=== PATIENT | male | born 1985 | race Caucasian/White ===

== ENCOUNTER 2017-02-25 20:53 | Emergency (ER) | payer SELFPAY ==
[~2017-02-25] VITALS: Ht 175.3 cm; Wt 96.5 kg
[2017-02-25 21:06] VITALS: Ht 175.3 cm; Wt 96.5 kg
[2017-02-26] MEDS ORDERED: CLON2TAB3 PO (11:18)
[2017-02-26] MEDS ORDERED: CITA-104 PO (11:18)
[2017-02-26] MEDS ORDERED: GABA400C14 PO (11:19)
[2017-02-26] MEDS ORDERED: TRAZ150T65 PO (11:19)
[2017-02-26] MEDS ORDERED: SPIR100T PO (11:19)
[2017-02-26] MEDS ORDERED: EST2 PO (11:25)
== END 2017-02-26 02:10 | disposition left against medical advice (07) ==
LOC: E/R 20:53
DX: Z53.21 Procedure and treatment not carried out due to patient leaving prior to being seen by health care provider (principal)

== ENCOUNTER 2017-02-26 10:42 | Inpatient (IN) | payer OTHER ==
[~2017-02-26] VITALS: Ht 177.8 cm; Wt 97.9 kg
[2017-02-26] MEDS ORDERED: HYDROmorphONE 1 MG/ML SYG IV STA ×3 (10:58→16:57)
[2017-02-26] MEDS ORDERED: SOD CHLORIDE 0.9% 500 ML IV STA (10:58)
[2017-02-26] MEDS ORDERED: LORAZEPAM 2 MG INJ IV STA (10:58)
[2017-02-26] MEDS ORDERED: ONDANSETRON 4 MG INJ IV STA (10:58)
[2017-02-26] MEDS ORDERED: CITA-104 PO (11:18)
[2017-02-26] MEDS ORDERED: CLON2TAB3 PO (11:18)
[2017-02-26] MEDS ORDERED: SPIR100T PO (11:19)
[2017-02-26] MEDS ORDERED: GABA400C14 PO (11:19)
[2017-02-26] MEDS ORDERED: TRAZ150T65 PO (11:19)
[2017-02-26] MEDS ORDERED: EST2 PO (11:25)
[2017-02-26 11:37] LABS: ADD SCAN DIFF NO
[2017-02-26 11:52] LABS: BASOPHILS % 0.6 % (0.0-2.0); EOSINOPHILS # 0.1 10^3/ul (0.0-0.5); EOSINOPHILS % 1.9 % (0.0-7.0); HEMATOCRIT 40.9 % (42.0-52.0); HEMOGLOBIN 13.8 g/dl (14.0-18.0); LYMPHOCYTES # 2.4 10^3/ul (0.8-2.9); LYMPHOCYTES % 33.3 % (15.0-51.0); MEAN CORPUSCULAR HEMOGLOBIN 32.2 pg (29.0-33.0); MEAN CORPUSCULAR HGB CONC 33.7 g/dl (32.0-37.0); MEAN CORPUSCULAR VOLUME 95.6 fl (82.0-101.0); MEAN PLATELET VOLUME 9.9 fl (7.4-10.4); MONOCYTE # 0.5 10^3/ul (0.3-0.9); MONOCYTES % 6.4 % (0.0-11.0); NEUTROPHIL # 4.1 10^3/ul (1.6-7.5); NEUTROPHILS % 57.2 % (39.0-77.0); PLATELET COUNT 266 10^3/UL (140-415); RED BLOOD COUNT 4.28 10^6/ul (4.70-6.10); RED CELL DISTRIBUTION WIDTH 13.7 % (11.5-14.5); WHITE BLOOD COUNT 7.2 10^3/ul (4.8-10.8)
[2017-02-26 13:01] LABS: ALANINE AMINOTRANSFERASE 165 IU/L (13-69); ALBUMIN 3.7 g/dl (3.3-4.9); ALBUMIN/GLOBULIN RATIO 1.23; ALKALINE PHOSPHATASE 87 IU/L (42-121); AMYLASE 620 U/L (11-123); ANION GAP 10 (8-16); ASPARTATE AMINO TRANSFERASE 216 IU/L (15-46); BLOOD UREA NITROGEN 12 mg/dl (7-20); CALCIUM 8.4 mg/dl (8.4-10.2); CARBON DIOXIDE 26 mmol/L (21-31); CHLORIDE 108 mmol/L (97-110); CREATININE 0.84 mg/dl (0.61-1.24); GLUCOSE 100 mg/dl (70-220); POTASSIUM 3.7 mmol/L (3.5-5.1); SODIUM 140 mmol/L (135-144); TOTAL PROTEIN 6.7 g/dl (6.1-8.1)
[2017-02-26 13:38] LABS: BARBITURATES NEGATIVE (NEGATIVE); BENZODIAZEPINES NEGATIVE (NEGATIVE); CANNABINOIDS NEGATIVE (NEGATIVE); COCAINE POSITIVE (NEGATIVE); OPIATES POSITIVE (NEGATIVE)
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
[2017-02-26] MEDS ORDERED: LORAZEPAM 2 MG INJ IV ONE (14:00)
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
[2017-02-26] MEDS ORDERED: SOD CHLORIDE 0.9% 1,000 ML IV SCH (14:53)
[2017-02-26] MEDS ORDERED: morphine 10 MG INJ IV ONE (15:00)
[2017-02-26] MEDS ORDERED: ACETAMINOPHEN 325 MG TAB PO PRN ×2 (15:00→18:00)
[2017-02-26] MEDS ORDERED: CLINDAMYCIN 900 MG INJ IV ONE (15:00)
[2017-02-26] MEDS ORDERED: ONDANSETRON 4 MG INJ IV PRN ×2 (15:00→18:00)
[2017-02-26 15:28] LABS: ACETAMINOPHEN < 10.0 ug/ml (10.0-30.0); SALICYLATE < 1.0 mg/dl (5.0-30.0)
--- NOTE | 2017-02-26 15:46 | EN ---
Date/Time of Note Date/Time of Note DATE: 02/26/17 TIME: 15:45 ER Progress Note Ultrasound-guided peripheral IV note: Indication, Ritika will obtain IV line and patient needs a high IV line for contrast CT. Area was cleaned with chlorhexidine wipe, ultrasound guidance was used to easily introduce a extended 18-gauge Angiocath into the right basilic vein. Patient tolerated the procedure with her no complications. IV had good blood return and flushed well. Images were saved in patient chart. SARA MALDONADO DO Feb 26, 2017 15:46
[2017-02-26] MEDS ORDERED: IOHEXOL 100 ML ONE (15:47)
[2017-02-26] MEDS ORDERED: SOD CHLORIDE 0.9% 100 ML ONE ×2 (15:47→20:52)
[2017-02-26] MEDS ORDERED: LIDOCAINE 1% (MPF) 5 ML VIAL SC ONE (16:30)
[2017-02-26] MEDS ORDERED: OLANZAPINE 10 MG VIAL IM ONE (17:30)
[2017-02-26] MEDS ORDERED: OLANZAPINE (ODT) 5 MG TAB ODT STA (17:36)
[2017-02-26] MEDS ORDERED: hydrALAzine 20 MG INJ IV PRN (18:00)
[2017-02-26] MEDS ORDERED: NACL 0.9% 3 ML SYG IV SCH (18:00)
[2017-02-26] MEDS ORDERED: LORAZEPAM 2 MG INJ IV PRN (18:00)
[2017-02-26] MEDS ORDERED: ALBUTEROL/IPRATROPIUM (NEB) 3 ML AMP HHN PRN (18:00)
[2017-02-26] MEDS ORDERED: NITROGLYCERIN (SL) 0.4 MG TAB SL PRN (18:00)
[2017-02-26] MEDS ORDERED: NA PHOSPHATE/BIPHOS 133 ML ENEMA PR PRN (18:00)
[2017-02-26] MEDS: SOD CHLORIDE 0.45% 1,000 ML IV SCH (18:46)
--- NOTE | 2017-02-26 18:52 | RADRPT ---
PROCEDURE: CTA Neck. CLINICAL INDICATION: Pain, vascular injury TECHNIQUE: The study was attempted, however, discussion with the vascular technologist sonographer indicates the IV infiltrated and no diagnostic images were acquired. COMPARISON: No prior studies are available for comparison. FINDINGS: Nondiagnostic exam due to IV infiltration. IMPRESSION: Nondiagnostic exam due to IV infiltration. Consider repeat imaging as warranted. RPTAT: AA .Sunny Isabel MD, MD Date Time Electronically viewed and signed by .Sunny Isabel MD, on 02/26/2017 18:51 .T/
[2017-02-26] MEDS ORDERED: CLINDAMYCIN 900 MG/D5W (PMX) 50 ML IVPB SCH (19:00)
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
[2017-02-26 20:45] VITALS: TEMP 98
--- NOTE | 2017-02-26 20:46 | RADRPT ---
PROCEDURE: XR Chest. CLINICAL INDICATION: Left PICC placement TECHNIQUE: AP Portable chest. COMPARISON: None available FINDINGS: The soft tissues and bones are remarkable for a left PICC catheter tip in the right atrium. Low rosey g volumes are present. No focal infiltrates, masses or effusions are present. The mediastinum and the heart size demonstrate magnification due to portable technique and possible mild cardiomegaly.. No focal infiltrates, masses, or effusions are noted. The mediastinum and heart are normal. No pn eumothorax is present. IMPRESSION: 1. Left PICC catheter tip in right atrium. 2. Magnification of the heart size dated portable AP technique and correlate with PA and lateral ch est x-ray to evaluate for mild cardiomegaly. 3. Low lung volumes without evidence for acute cardiopulmonary disease. RPTAT: HDC .Krystin Gao MD, Date Time Electronically viewed and signed by .Krystin Gao MD, on 02/26/2017 20:46 .C/
[2017-02-26] MEDS ORDERED: GABAPENTIN 400 MG CAP PO SCH (21:00)
[2017-02-26] MEDS: CHLORDIAZEPOXIDE 5 MG CAP PO SCH ×2 (21:20→23:00)
[2017-02-26 21:28] LABS: INR 0.97; PROTIME 12.9 Sec (12.2-14.2)
[2017-02-26 21:29] LABS: PARTIAL THROMBOPLASTIN TIME 27.5 Sec (25.0-35.0)
[2017-02-26] MEDS: LORAZEPAM 2 MG INJ IV PRN (22:59)
[2017-02-26] MEDS: HEPARIN 5,000 UNIT/0.5 ML VIAL SC SCH (23:09)
[2017-02-26] MEDS: morphine 2 MG INJ IV PRN (23:15)
[2017-02-26 23:19] VITALS: BP 117/69; RESP 20
[2017-02-27] MEDS: CLINDAMYCIN 600 MG/D5W (PMX) 50 ML IVPB SCH ×5 (00:02→23:34)
[2017-02-27 00:06] VITALS: Ht 177.8 cm; Wt 97.9 kg
[2017-02-27] MEDS: morphine 2 MG INJ IV PRN ×4 (04:51→23:35)
[2017-02-27] MEDS: PANTOPRAZOLE (EC) 40 MG TAB PO SCH (05:29)
[2017-02-27] MEDS: LORAZEPAM 2 MG INJ IV PRN ×4 (05:30→20:19)
[2017-02-27 06:56] LABS: CHOL/HDL RATIO 3.3 RATIO
[2017-02-27] MEDS: SOD CHLORIDE 0.45% 1,000 ML IV SCH ×2 (07:14→20:19)
[2017-02-27 07:21] LABS: THYROID STIMULATING HORMONE 2.68 MIU/L (0.465-4.680)
[2017-02-27 08:00] LABS: ADD SCAN DIFF NO
[2017-02-27 08:05] LABS: BASOPHILS % 0.7 % (0.0-2.0); EOSINOPHILS # 0.2 10^3/ul (0.0-0.5); HEMATOCRIT 35.7 % (42.0-52.0); HEMOGLOBIN 12.3 g/dl (14.0-18.0); LYMPHOCYTES # 1.7 10^3/ul (0.8-2.9); LYMPHOCYTES % 37.9 % (15.0-51.0); MEAN CORPUSCULAR HEMOGLOBIN 32.8 pg (29.0-33.0); MEAN CORPUSCULAR HGB CONC 34.5 g/dl (32.0-37.0); MEAN CORPUSCULAR VOLUME 95.2 fl (82.0-101.0); MEAN PLATELET VOLUME 10.4 fl (7.4-10.4); MONOCYTE # 0.4 10^3/ul (0.3-0.9); MONOCYTES % 8.1 % (0.0-11.0); NEUTROPHIL # 2.2 10^3/ul (1.6-7.5); NEUTROPHILS % 48.9 % (39.0-77.0); PLATELET COUNT 226 10^3/UL (140-415); RED BLOOD COUNT 3.75 10^6/ul (4.70-6.10); RED CELL DISTRIBUTION WIDTH 12.7 % (11.5-14.5); WHITE BLOOD COUNT 4.5 10^3/ul (4.8-10.8)
--- NOTE | 2017-02-27 08:25 | RADRPT ---
PROCEDURE: PICC line placement under ultrasound guidance CLINICAL INDICATION: Central line placement TECHNIQUE: Informed consent was obtained following care for examinations of the base and benefits of the proced ure. Study: Left upper arm prepped with Betadine and covered with a sterile drape. Skin and subcutaneous tissues anesthesized with 3 ccs of 1 percent lidocaine. 21 gauge micropuncture needle placed in the left brachial vein via a single wall technique with ultrasound guidance. A recorded image by [employer] und was obtained. Stainless steel 018 straight wire advanced and placed in the superior vena cava un mary fluoroscopic control. 5 Fr tear-away sheath advanced over the wire and placed in the vein. 5 Fr PICC line catheter was advanced into the thorax and radiograph was obtained. Catheter secured in pl aisha with an adhesive fixation device and covered with Tegaderm. Catheter ports flushed with heparini zed saline. Please see radiograph for the placement of the catheter tip. No complications encountered. COMPARISON: None FINDINGS: Left-sided PICC line placed under ultrasound. Please see separate report of the chest x-ray for the tip placement. RPTAT: AA IMPRESSION: Placement of a left-sided PICC line. .Arsalan Luong MD, Date Time Electronically viewed and signed by .Arsalan Luong MD, MD on 02/27/2017 08:25 .Heather/
[2017-02-27 08:26] LABS: CALCIUM 8.2 mg/dl (8.4-10.2); CREATININE 0.76 mg/dl (0.61-1.24); MAGNESIUM 1.2 mg/dl (1.7-2.5); POTASSIUM 3.3 mmol/L (3.5-5.1)
[2017-02-27] MEDS: SPIRONOLACTONE 50 MG TAB PO SCH (08:42)
[2017-02-27] MEDS: CITALOPRAM 20 MG TAB PO SCH (08:42)
[2017-02-27] MEDS: CHLORDIAZEPOXIDE 5 MG CAP PO SCH ×4 (08:42→20:20)
[2017-02-27] MEDS: MULTIVITAMINS 10 ML, THIAMINE 100 MG, FOLIC ACID 1 MG in SOD CHLORIDE 0.9% 1,000 ML IVPB SCH (08:43)
[2017-02-27 08:48] VITALS: BP 117/62; PULSE 78; RESP 18
[2017-02-27] MEDS: HEPARIN 5,000 UNIT/0.5 ML VIAL SC SCH ×2 (09:00→20:30)
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
[2017-02-27 10:52] LABS: HAAIG REFLEX REFLEX FILED
[2017-02-27] MEDS ORDERED: MAGNESIUM SULFATE 3 GM in SOD CHLORIDE 0.9% 100 ML IVPB ONE (11:00)
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
[2017-02-27 13:03] LABS: HEPATITIS B CORE ANTIBODY NEGATIVE (NEGATIVE)
[2017-02-27] MEDS: ESTRADIOL 1 MG TAB PO SCH (13:05)
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
[2017-02-27] MEDS: traMADol 50 MG TAB PO PRN (20:20)
[2017-02-27] MEDS: DOCUSATE SODIUM 100 MG CAP PO PRN (20:20)
[2017-02-28] MEDS: PANTOPRAZOLE (EC) 40 MG TAB PO SCH (05:45)
[2017-02-28] MEDS: morphine 2 MG INJ IV PRN ×4 (05:45→21:38)
[2017-02-28] MEDS: CLINDAMYCIN 600 MG/D5W (PMX) 50 ML IVPB SCH ×3 (05:45→17:31)
[2017-02-28] MEDS: traMADol 50 MG TAB PO PRN ×2 (05:45→20:44)
[2017-02-28 06:21] LABS: ADD SCAN DIFF NO
[2017-02-28 06:48] LABS: BASOPHILS % 0.3 % (0.0-2.0); EOSINOPHILS # 0.2 10^3/ul (0.0-0.5); EOSINOPHILS % 5.9 % (0.0-7.0); HEMOGLOBIN 12.5 g/dl (14.0-18.0); LYMPHOCYTES # 1.3 10^3/ul (0.8-2.9); LYMPHOCYTES % 32.3 % (15.0-51.0); MEAN CORPUSCULAR HEMOGLOBIN 31.6 pg (29.0-33.0); MEAN CORPUSCULAR HGB CONC 33.8 g/dl (32.0-37.0); MEAN CORPUSCULAR VOLUME 93.7 fl (82.0-101.0); MEAN PLATELET VOLUME 10.3 fl (7.4-10.4); MONOCYTE # 0.4 10^3/ul (0.3-0.9); MONOCYTES % 9.2 % (0.0-11.0); NEUTROPHIL # 2.1 10^3/ul (1.6-7.5); PLATELET COUNT 199 10^3/UL (140-415); RED BLOOD COUNT 3.95 10^6/ul (4.70-6.10); RED CELL DISTRIBUTION WIDTH 12.4 % (11.5-14.5); WHITE BLOOD COUNT 3.9 10^3/ul (4.8-10.8)
[2017-02-28 06:50] LABS: CALCIUM 7.9 mg/dl (8.4-10.2); CREATININE 0.71 mg/dl (0.61-1.24); POTASSIUM 3.5 mmol/L (3.5-5.1)
[2017-02-28 06:51] LABS: MAGNESIUM 1.6 mg/dl (1.7-2.5); PHOSPHORUS 2.9 mg/dl (2.5-4.9)
[2017-02-28 07:21] VITALS: BP 135/89; RESP 18
--- NOTE | 2017-02-28 08:59 | PN ---
Date/Time of Note Date/Time of Note DATE: 02/28/17 TIME: 08:54 Assessment/Plan VTE Prophylaxis VTE Prophylaxis Intervention: heparin Lines/Catheters IV Catheter Type (from Nrs): PICC Line Central line still needed: Yes Assessment/Plan Chief Complaint/Hosp Course ASSESSMENT AND PLAN: 31-year-old male coming in with alcohol intoxication, right neck trauma, suicide ideation. 1. right neck swelling - sec to trauma (see CT neck report) - continue pain meds, f/u ENT rec's - will start IV steroids - continuie broad-spectrum antibiotics Clindamycin - may need to repeat CTA of the neck as well (IV infiltrated) - f/u TSH, A1c, lipid panel. Continue IV fluids 2. Alcohol intoxication. Again, banana bag, Librium, monitor for signs of delirium tremens, Ativan 1 mg IV q.1 hour p.r.n. as well. 3. Psychiatric: Suicide ideation -appreciate psychiatric consult - Ativan p.r.n. for agitation. - Celexa, add Trazadone and Gabapentin 4. Gastrointestinal prophylaxis, proton pump inhibitor. 5. Deep venous thrombosis prophylaxis, heparin subQ 6. Hep C - + - monitor 7. asthma - duoneb's prn 8. Questionable sz ds - no activity noted - ativan prn Problems: Subjective 24 Hr Interval Summary Free Text/Dictation Pt seen by psych and ENT. Tolerating PO diet. Exam/Review of Systems Vital Signs Vitals Vital Signs Date Time Temp Pulse Resp B/P Pulse Ox O2 Delivery O2 Flow Rate FiO2 02/28/17 07:21 97.6 75 18 135/89 97 02/27/17 08:48 Room Air Intake and Output 02/27/17 02/27/17 02/28/17 15:00 23:00 07:00 Intake Total 461 ml 1531.2 ml 740 ml Output Total 450 ml 400 ml 400 ml Balance 11 ml 1131.2 ml 340 ml Exam GENERAL: The patient is alert, currently, no acute distress. HEENT: Pupils equal, round, react to light. Extraocular muscles intact. There is a right-sided swelling noted to the right parotid gland area with tenderness and also to the right neck area underneath the right mandible. NECK: Again, see above. Swelling on the right side of the neck. RESPIRATORY: Clear to auscultation bilaterally. CARDIOVASCULAR: S1, S2 heard. No rubs or gallops. ABDOMEN: Soft, nontender, nondistended. Normal bowel sounds. No rebound or guarding. MUSCULOSKELETAL: No lower extremity edema bilaterally. NEUROLOGIC: No focal deficits. Results Result Diagram: 02/28/17 0540 02/28/17 0540 Results 24 hrs Laboratory Tests Test 02/28/17 05:40 White Blood Count 3.9 L Red Blood Count 3.95 L Hemoglobin 12.5 L Hematocrit 37.0 L Mean Corpuscular Volume 93.7 Mean Corpuscular Hemoglobin 31.6 Mean Corpuscular Hemoglobin Concent 33.8 Red Cell Distribution Width 12.4 Platelet Count 199 Mean Platelet Volume 10.3 Neutrophils % 52.0 Lymphocytes % 32.3 Monocytes % 9.2 Eosinophils % 5.9 Basophils % 0.3 Nucleated Red Blood Cells % 0.0 Neutrophils # 2.1 Lymphocytes # 1.3 Monocytes # 0.4 Eosinophils # 0.2 Basophils # 0.0 Nucleated Red Blood Cells # 0.0 Sodium Level 134 L Potassium Level 3.5 Chloride Level 103 Carbon Dioxide Level 28 Anion Gap 7 L Blood Urea Nitrogen 8 Creatinine 0.71 Glucose Level 97 Calcium Level 7.9 L Phosphorus Level 2.9 Magnesium Level 1.6 L Medications Medications Current Medications Ondansetron HCl (Zofran Inj) 4 mg Q6H PRN IV NAUSEA AND/OR VOMITING Last administered on 02/27/17 04:51; Admin Dose 4 MG; Start 02/26/17 at 18:00 Acetaminophen (Tylenol Tab) 650 mg Q6H PRN PO PAIN LEVEL 1-3 OR FEVER; Start at 18:00 Acetaminophen/ Hydrocodone Bitart ([place] (5/325)) 1 tab Q6H PRN PO MODERATE PAIN LEVEL 4-6; Start 02/26/17 at 18:00 Morphine Sulfate (morphine) 2 mg Q4H PRN IV SEVERE PAIN LEVEL 7-10 Last administered on 02/28/17 05:45; Admin Dose 2 MG; Start 02/26/17 at 18:00 Docusate Sodium (Colace) 100 mg Q12H PRN PO CONSTIPATION Last administered on 20:20; Admin Dose 100 MG; Start 02/26/17 at 18:00 Magnesium Hydroxide (Milk Of Mag) 30 ml DAILY PRN PO CONSTIPATION; Start at 18:00 Sodium Biphosphate/ Sodium Phosphate (Fleet Enema) [address] CONSTIPATION; Start 02/26/17 at 18:00 Pantoprazole (Protonix Tab) 40 mg DAILY@06 PO Last administered on 02/28/17 05 :45; Admin Dose 40 MG; Start 02/27/17 at 06:00 Heparin Sodium (Porcine) 5000 unit 5,000 unit Q12 SC Last administered on 23:09; Admin Dose 5,000 UNIT; Start 02/26/17 at 21:00 Sodium Chloride (1/2 NS) 1,000 ml @ 75 mls/hr [id number] IV Last administered on 02/27/17 20:19; Admin Dose 75 MLS/HR; Start 02/26/17 at 17:54 Hydralazine HCl (Apresoline) 10 mg Q6H PRN IV ELEVATED BLOOD PRESSURE; Start at 18:00 Nitroglycerin (Nitroglycerin (Sl Tab) 0.4 Mg) 1 tab Q5M PRN SL ANGINA; Start at 18:00 Citalopram Hydrobromide (Celexa) 40 mg DAILY PO Last administered on 02/27/17 08:42; Admin Dose 40 MG; Start 02/27/17 at 09:00 Estradiol (Estrace) 8 mg DAILY PO Last administered on 02/27/17 13:05; Admin Dose 8 MG; Start 02/27/17 at 10:00 Spironolactone 300 mg 300 mg DAILY PO Last administered on 02/27/17 08:42; Admin Dose 300 MG; Start 02/27/17 at 09:00 Multivitamins/ Thiamine HCl/ Folic Acid/Sodium Chloride (Mvi Adult/ Vitamin B1/ Folic Acid/NS) 1,011.2 ml @ 125 mls/ hr DAILY@09 IVPB Last administered on 08:43; Admin Dose 125 MLS/HR; Start 02/27/17 at 09:00 Chlordiazepoxide (Librium) 10 mg QID PO Last administered on 02/27/17 20:20; Admin Dose 10 MG; Start 02/26/17 at 18:30 Lorazepam 1 mg 1 mg Q1H PRN IV CONTROL WITHDRAWAL SYMPTOMS Last administered on 02/27/17 20:19; Admin Dose 1 MG; Start 02/26/17 at 19:00 Clindamycin HCl/ Dextrose (Cleocin 600 Mg/ D5W (Pmx)) 50 ml @ 50 mls/hr Q6 IVPB Last administered on 02/28/17 05:45; Admin Dose 50 MLS/HR; Start 02/27/17 at 00:00 IV Flush (NS 10 ml) 10 ml PRN PRN IV IV PROTOCOL; Start 02/26/17 at 21:00 Tramadol HCl (Ultram) 50 mg Q6H PRN PO PAIN Last administered on 02/28/17 05: 45; Admin Dose 50 MG; Start 02/27/17 at 20:00 Trazodone HCl (Desyrel) 100 mg HS PO ; Start 02/28/17 at 21:00; Status UNV Gabapentin (Neurontin) 300 mg TID PO ; Start 02/28/17 at 09:00; Status UNV [place] JIMENEZ Feb 28, 2017 08:59
[2017-02-28] MEDS: HEPARIN 5,000 UNIT/0.5 ML VIAL SC SCH ×2 (09:00→21:00)
[2017-02-28] MEDS ORDERED: MAGNESIUM SULFATE 2 GM/50 ML 50 ML IVPB ONE (09:00)
[2017-02-28] MEDS: SPIRONOLACTONE 50 MG TAB PO SCH (09:00)
[2017-02-28] MEDS: CHLORDIAZEPOXIDE 5 MG CAP PO SCH ×4 (09:01→20:48)
[2017-02-28] MEDS: CITALOPRAM 20 MG TAB PO SCH (09:01)
[2017-02-28] MEDS: SOD CHLORIDE 0.45% 1,000 ML IV SCH ×2 (09:01→23:14)
[2017-02-28] MEDS: ESTRADIOL 1 MG TAB PO SCH (09:01)
[2017-02-28] MEDS: MULTIVITAMINS 10 ML, THIAMINE 100 MG, FOLIC ACID 1 MG in SOD CHLORIDE 0.9% 1,000 ML IVPB SCH (09:05)
[2017-02-28] MEDS: LORAZEPAM 2 MG INJ IV PRN ×4 (09:05→22:47)
[2017-02-28] MEDS: METHYLPREDNISOLONE 40 MG INJ IV SCH ×3 (09:07→21:38)
[2017-02-28] MEDS: GABAPENTIN 300 MG CAP PO SCH ×3 (09:07→20:44)
--- NOTE | 2017-02-28 14:33 | PN ---
DATE: GENERAL: The patient is up today and seems to be much more cooperative. PHYSICAL EXAMINATION: When looking at him, there still is that the right-sided facial paresis, but he does have spontaneous blinking. He cannot raise his eyebrows nor can he can smile, but the fact that there is blinking there leads me to believe that there is still some function there, so that veto giovanny well for full return of function. When feeling the parotid bed, there is edema there. It is de finitely down from where it was and when looking at him there is no significant asymmetry at this po int. The oral cavity shows no discolored drainage coming out of Stensen's duct. Floor of mouth is clear. ASSESSMENT: At this point, I would continue current care and will go from there. Dictated By: AIMEE SHELTON/WARREN Conf#: [id number] DID#: [id number]
[2017-02-28] MEDS: DOCUSATE SODIUM 100 MG CAP PO PRN (17:30)
[2017-02-28 19:09] VITALS: BP 142/82; RESP 18
[2017-02-28] MEDS: traZODone 100 MG TAB PO SCH (22:47)
[2017-02-28] MEDS: HYDROCODONE/APAP (5/325) TAB PO PRN (22:55)
[2017-03-01] MEDS: morphine 2 MG INJ IV PRN ×5 (04:50→22:16)
[2017-03-01] MEDS: HYDROCODONE/APAP (5/325) TAB PO PRN ×3 (06:02→19:36)
[2017-03-01] MEDS: METHYLPREDNISOLONE 40 MG INJ IV SCH ×3 (06:03→21:22)
[2017-03-01] MEDS: LORAZEPAM 2 MG INJ IV PRN ×4 (06:04→19:36)
[2017-03-01] MEDS: PANTOPRAZOLE (EC) 40 MG TAB PO SCH (06:04)
[2017-03-01] MEDS: CLINDAMYCIN 600 MG/D5W (PMX) 50 ML IVPB SCH ×4 (06:04→17:48)
[2017-03-01 07:24] VITALS: BP 124/78; RESP 18
[2017-03-01] MEDS: MULTIVITAMINS 10 ML, THIAMINE 100 MG, FOLIC ACID 1 MG in SOD CHLORIDE 0.9% 1,000 ML IVPB SCH (09:15)
[2017-03-01] MEDS: ESTRADIOL 1 MG TAB PO SCH (09:18)
[2017-03-01] MEDS: GABAPENTIN 300 MG CAP PO SCH ×3 (09:18→21:16)
[2017-03-01] MEDS: SPIRONOLACTONE 50 MG TAB PO SCH (09:19)
[2017-03-01] MEDS: CITALOPRAM 20 MG TAB PO SCH (09:19)
[2017-03-01] MEDS: CHLORDIAZEPOXIDE 5 MG CAP PO SCH ×4 (09:19→21:15)
[2017-03-01] MEDS: HEPARIN 5,000 UNIT/0.5 ML VIAL SC SCH ×2 (09:23→21:00)
[2017-03-01 10:20] LABS: ADD SCAN DIFF NO
[2017-03-01 10:25] LABS: BASOPHILS % 0.1 % (0.0-2.0); HEMATOCRIT 36.8 % (42.0-52.0); LYMPHOCYTES # 0.7 10^3/ul (0.8-2.9); LYMPHOCYTES % 5.6 % (15.0-51.0); MEAN CORPUSCULAR HEMOGLOBIN 32.7 pg (29.0-33.0); MEAN CORPUSCULAR HGB CONC 35.3 g/dl (32.0-37.0); MEAN CORPUSCULAR VOLUME 92.7 fl (82.0-101.0); MEAN PLATELET VOLUME 10.5 fl (7.4-10.4); MONOCYTE # 0.5 10^3/ul (0.3-0.9); MONOCYTES % 3.6 % (0.0-11.0); NEUTROPHIL # 11.6 10^3/ul (1.6-7.5); NEUTROPHILS % 89.7 % (39.0-77.0); PLATELET COUNT 228 10^3/UL (140-415); RED BLOOD COUNT 3.97 10^6/ul (4.70-6.10); WHITE BLOOD COUNT 12.9 10^3/ul (4.8-10.8)
[2017-03-01 10:34] LABS: POTASSIUM 3.9 mmol/L (3.5-5.1)
[2017-03-01 10:37] LABS: CREATININE 0.66 mg/dl (0.61-1.24)
[2017-03-01 10:38] LABS: CALCIUM 9.3 mg/dl (8.4-10.2)
--- NOTE | 2017-03-01 11:53 | PN ---
Date/Time of Note Date/Time of Note DATE: 03/01/17 TIME: 11:52 Assessment/Plan VTE Prophylaxis VTE Prophylaxis Intervention: heparin Lines/Catheters IV Catheter Type (from Nrs): PICC Line Central line still needed: Yes (difficult peripheral access for IV abx) Assessment/Plan Assessment/Plan 1. right neck swelling - sec to trauma (see CT neck report) - continue pain meds, f/u ENT rec's - will start IV steroids - continuie broad-spectrum antibiotics Clindamycin - may need to repeat CTA of the neck as well (IV infiltrated) - f/u TSH, A1c, lipid panel. Continue IV fluids 2. Alcohol intoxication. Again, banana bag, Librium, monitor for signs of delirium tremens, Ativan 1 mg IV q.1 hour p.r.n. as well. 3. Psychiatric: Suicide ideation -appreciate psychiatric consult - Ativan p.r.n. for agitation. - Celexa, add Trazadone and Gabapentin 4. Gastrointestinal prophylaxis, proton pump inhibitor. 5. Deep venous thrombosis prophylaxis, heparin subQ 6. Hep C - + - monitor 7. asthma - duoneb's prn 8. Questionable sz ds - no activity noted - ativan prn Subjective 24 Hr Interval Summary Free Text/Dictation no acute events, S/p ENT follow up , no surgical intervention at this time Exam/Review of Systems Vital Signs Vitals Vital Signs Date Time Temp Pulse Resp B/P Pulse Ox O2 Delivery O2 Flow Rate FiO2 03/01/17 07:24 98.0 69 18 124/78 98 02/27/17 08:48 Room Air Intake and Output 02/28/17 02/28/17 03/01/17 15:00 23:00 07:00 Intake Total 50 ml 2071.2 ml 705 ml Balance 50 ml 2071.2 ml 705 ml Exam GENERAL: The patient is alert, currently, no acute distress. HEENT: Pupils equal, round, react to light. Extraocular muscles intact. There is a right-sided swelling noted to the right parotid gland area with tenderness and also to the right neck area underneath the right mandible. NECK: Again, see above. Swelling on the right side of the neck. RESPIRATORY: Clear to auscultation bilaterally. CARDIOVASCULAR: S1, S2 heard. No rubs or gallops. ABDOMEN: Soft, nontender, nondistended. Normal bowel sounds. No rebound or guarding. MUSCULOSKELETAL: No lower extremity edema bilaterally. NEUROLOGIC: No focal deficits. Results Result Diagram: 03/01/17 0940 03/01/17 0940 Results 24 hrs Laboratory Tests Test 03/01/17 09:40 White Blood Count 12.9 #H Red Blood Count 3.97 L Hemoglobin 13.0 L Hematocrit 36.8 L Mean Corpuscular Volume 92.7 Mean Corpuscular Hemoglobin 32.7 Mean Corpuscular Hemoglobin Concent 35.3 Red Cell Distribution Width 12.0 Platelet Count 228 Mean Platelet Volume 10.5 H Neutrophils % 89.7 H Lymphocytes % 5.6 L Monocytes % 3.6 Eosinophils % 0.0 Basophils % 0.1 Nucleated Red Blood Cells % 0.0 Neutrophils # 11.6 H Lymphocytes # 0.7 L Monocytes # 0.5 Eosinophils # 0.0 Basophils # 0.0 Nucleated Red Blood Cells # 0.0 Sodium Level 138 Potassium Level 3.9 Chloride Level 105 Carbon Dioxide Level 25 Anion Gap 12 Blood Urea Nitrogen 9 Creatinine 0.66 Glucose Level 134 Calcium Level 9.3 Medications Medications Current Medications Ondansetron HCl (Zofran Inj) 4 mg Q6H PRN IV NAUSEA AND/OR VOMITING Last administered on 02/27/17 04:51; Admin Dose 4 MG; Start 02/26/17 at 18:00 Acetaminophen (Tylenol Tab) 650 mg Q6H PRN PO PAIN LEVEL 1-3 OR FEVER; Start at 18:00 Acetaminophen/ Hydrocodone Bitart ([place] (5/325)) 1 tab Q6H PRN PO MODERATE PAIN LEVEL 4-6 Last administered on 03/01/17 06:02; Admin Dose 1 TAB; Start at 18:00 Morphine Sulfate (morphine) 2 mg Q4H PRN IV SEVERE PAIN LEVEL 7-10 Last administered on 03/01/17 09:20; Admin Dose 2 MG; Start 02/26/17 at 18:00 Docusate Sodium (Colace) 100 mg Q12H PRN PO CONSTIPATION Last administered on 17:30; Admin Dose 100 MG; Start 02/26/17 at 18:00 Magnesium Hydroxide (Milk Of Mag) 30 ml DAILY PRN PO CONSTIPATION; Start at 18:00 Sodium Biphosphate/ Sodium Phosphate (Fleet Enema) 133 ml DAILY PRN [place] CONSTIPATION; Start 02/26/17 at 18:00 Pantoprazole (Protonix Tab) 40 mg DAILY@06 PO Last administered on 03/01/17 06: 04; Admin Dose 40 MG; Start 02/27/17 at 06:00 Heparin Sodium (Porcine) 5000 unit 5,000 unit Q12 SC Last administered on 09:23; Admin Dose 5,000 UNIT; Start 02/26/17 at 21:00 Sodium Chloride (1/2 NS) 1,000 ml @ 75 mls/hr [id number] IV Last administered on 02/28/17 23:14; Admin Dose 75 MLS/HR; Start 02/26/17 at 17:54 Hydralazine HCl (Apresoline) 10 mg Q6H PRN IV ELEVATED BLOOD PRESSURE; Start at 18:00 Nitroglycerin (Nitroglycerin (Sl Tab) 0.4 Mg) 1 tab Q5M PRN SL ANGINA; Start at 18:00 Citalopram Hydrobromide (Celexa) 40 mg DAILY PO Last administered on 03/01/17 09:19; Admin Dose 40 MG; Start 02/27/17 at 09:00 Estradiol (Estrace) 8 mg DAILY PO Last administered on 03/01/17 09:18; Admin Dose 8 MG; Start 02/27/17 at 10:00 Spironolactone 300 mg 300 mg DAILY PO Last administered on 03/01/17 09:19; Admin Dose 300 MG; Start 02/27/17 at 09:00 Multivitamins/ Thiamine HCl/ Folic Acid/Sodium Chloride (Mvi Adult/ Vitamin B1/ Folic Acid/NS) 1,011.2 ml @ 125 mls/ hr DAILY@09 IVPB Last administered on 03/01 09:15; Admin Dose 125 MLS/HR; Start 02/27/17 at 09:00 Chlordiazepoxide (Librium) 10 mg QID PO Last administered on 03/01/17 09:19; Admin Dose 10 MG; Start 02/26/17 at 18:30 Lorazepam 1 mg 1 mg Q1H PRN IV CONTROL WITHDRAWAL SYMPTOMS Last administered on 03/01/17 10:39; Admin Dose 1 MG; Start 02/26/17 at 19:00 Clindamycin HCl/ Dextrose (Cleocin 600 Mg/ D5W (Pmx)) 50 ml @ 50 mls/hr Q6 IVPB Last administered on 03/01/17 06:04; Admin Dose 50 MLS/HR; Start 02/27/17 at 00:00 IV Flush (NS 10 ml) 10 ml PRN PRN IV IV PROTOCOL; Start 02/26/17 at 21:00 Tramadol HCl (Ultram) 50 mg Q6H PRN PO PAIN Last administered on 02/28/17 20: 44; Admin Dose 50 MG; Start 02/27/17 at 20:00 Trazodone HCl (Desyrel) 100 mg HS PO Last administered on 02/28/17 22:47; Admin Dose 100 MG; Start 02/28/17 at 21:00 Gabapentin (Neurontin) 300 mg TID PO Last administered on 03/01/17 09:18; Admin Dose 300 MG; Start 02/28/17 at 09:00 Methylprednisolone Sodium Succinate (Solu-Medrol) 40 mg Q8 IV Last administered on 03/01/17 06:03; Admin Dose 40 MG; Start 02/28/17 at 09:00 VANI GRIMES MD March 01, 2017 11:53
[2017-03-01] MEDS: DOCUSATE SODIUM 100 MG CAP PO PRN (13:54)
--- NOTE | 2017-03-01 15:41 | CONS ---
DATE OF ADMISSION: 02/26/2017 DATE OF CONSULTATION: FOLLOWUP CONSULTATION SUBJECTIVE: Mr. Garcia's facial swelling has significantly decreased. While he does have tendernes s in that area, there is minimal induration now when compared with the contralateral side. When loo unique at facial nerve motion, he still has no motion of the lower division, but he has full eye closu re, and now I can see movement of the right distribution technician, and he can slightly elevate the brow on that side. At this point, he is slowly improving. We will continue to follow. Dictated By: AIMEE SHELTON/WARREN Conf#: [id number] DID#: [id number]
[2017-03-01] MEDS ORDERED: ITRACONAZOLE 100 MG CAP PO SCH (19:00)
[2017-03-01 19:12] VITALS: BP 140/79; RESP 18
[2017-03-01] MEDS ORDERED: PERMETHRIN 1% 59 ML TOP ONE (22:00)
[2017-03-01] MEDS: traZODone 100 MG TAB PO SCH (22:19)
[2017-03-02] MEDS: CLINDAMYCIN 600 MG/D5W (PMX) 50 ML IVPB SCH ×5 (00:53→23:20)
[2017-03-02] MEDS: LORAZEPAM 2 MG INJ IV PRN ×3 (00:54→14:43)
[2017-03-02] MEDS: PANTOPRAZOLE (EC) 40 MG TAB PO SCH (06:07)
[2017-03-02] MEDS: METHYLPREDNISOLONE 40 MG INJ IV SCH ×2 (06:07→13:26)
[2017-03-02 07:06] LABS: ADD SCAN DIFF NO
[2017-03-02 07:17] LABS: BASOPHILS % 0.2 % (0.0-2.0); HEMATOCRIT 37.1 % (42.0-52.0); HEMOGLOBIN 12.6 g/dl (14.0-18.0); LYMPHOCYTES # 1.4 10^3/ul (0.8-2.9); MEAN CORPUSCULAR HEMOGLOBIN 32.1 pg (29.0-33.0); MEAN CORPUSCULAR VOLUME 94.4 fl (82.0-101.0); MEAN PLATELET VOLUME 10.6 fl (7.4-10.4); MONOCYTE # 0.4 10^3/ul (0.3-0.9); MONOCYTES % 3.3 % (0.0-11.0); NEUTROPHILS % 83.8 % (39.0-77.0); PLATELET COUNT 226 10^3/UL (140-415); RED BLOOD COUNT 3.93 10^6/ul (4.70-6.10); RED CELL DISTRIBUTION WIDTH 12.5 % (11.5-14.5); WHITE BLOOD COUNT 13.1 10^3/ul (4.8-10.8)
[2017-03-02 07:22] LABS: POTASSIUM 3.9 mmol/L (3.5-5.1)
[2017-03-02 07:23] LABS: INR 0.9; PROTIME 12.1 Sec (12.2-14.2); PT RATIO 0.9
[2017-03-02 07:25] LABS: CREATININE 0.66 mg/dl (0.61-1.24)
[2017-03-02 07:26] LABS: CALCIUM 9.2 mg/dl (8.4-10.2)
[2017-03-02 07:28] LABS: PARTIAL THROMBOPLASTIN TIME 21.8 Sec (25.0-35.0)
[2017-03-02] MEDS ORDERED: PERMETHRIN 1% 59 ML TOP ONE ×2 (09:00)
[2017-03-02] MEDS: HEPARIN 5,000 UNIT/0.5 ML VIAL SC SCH ×2 (09:00→20:22)
[2017-03-02] MEDS: GABAPENTIN 300 MG CAP PO SCH ×3 (09:24→20:20)
[2017-03-02] MEDS: CHLORDIAZEPOXIDE 5 MG CAP PO SCH ×4 (09:24→20:22)
[2017-03-02] MEDS: CITALOPRAM 20 MG TAB PO SCH (09:25)
[2017-03-02] MEDS: SPIRONOLACTONE 50 MG TAB PO SCH (09:25)
[2017-03-02] MEDS: ESTRADIOL 1 MG TAB PO SCH (09:26)
[2017-03-02 09:45] VITALS: BP 117/60; RESP 18
[2017-03-02] MEDS: morphine 2 MG INJ IV PRN ×2 (13:33→17:46)
[2017-03-02] MEDS: DOCUSATE SODIUM 100 MG CAP PO PRN (13:39)
[2017-03-02] MEDS: HYDROCODONE/APAP (5/325) TAB PO PRN ×2 (15:37→23:18)
[2017-03-02] MEDS: MAGNESIUM HYDROXIDE 30ML CUP PO PRN (17:39)
--- NOTE | 2017-03-02 18:44 | PN ---
Date/Time of Note Date/Time of Note DATE: 03/02/17 TIME: 18:37 Assessment/Plan VTE Prophylaxis VTE Prophylaxis Intervention: heparin, SCD's Lines/Catheters IV Catheter Type (from Nrsg): PICC Line Central line still needed: Yes (IV abx, IV pain meds, difficult peripherl access ) Assessment/Plan Assessment/Plan 1. right neck swelling - sec to trauma (see CT neck report) s/p ENT consutl, on PO clindamycin 2. Alcohol intoxication. Again, banana bag, Librium, monitor for signs of delirium tremens, Ativan 1 mg IV q.1 hour p.r.n. as well. 3. Psychiatric: Suicide ideation -appreciate psychiatric consult - Ativan PO p.r.n. for agitation. - Celexa, add Trazadone and Gabapentin 4. Gastrointestinal prophylaxis, proton pump inhibitor. 5. Deep venous thrombosis prophylaxis, heparin subQ 6. Hep C - + - monitor 7. asthma - duoneb's prn. changed to po prednisone on MS contin 15mg BId for pain control, Po norco prn Subjective 24 Hr Interval Summary Free Text/Dictation doing ok, Bp stable, still asking for IV morphine Exam/Review of Systems Vital Signs Vitals Vital Signs Date Time Temp Pulse Resp B/P Pulse Ox O2 Delivery O2 Flow Rate FiO2 03/02/17 09:45 97.8 52 18 117/60 98 02/27/17 08:48 Room Air Intake and Output 03/01/17 03/01/17 03/02/17 15:00 23:00 07:00 Intake Total 575 ml 850 ml 1040 ml Balance 575 ml 850 ml 1040 ml Exam GENERAL: The patient is alert, currently, no acute distress. HEENT: Pupils equal, round, react to light. Extraocular muscles intact. There is a right-sided swelling noted to the right parotid gland area with tenderness and also to the right neck area underneath the right mandible. NECK: Again, see above. Swelling on the right side of the neck. RESPIRATORY: Clear to auscultation bilaterally. CARDIOVASCULAR: S1, S2 heard. No rubs or gallops. ABDOMEN: Soft, nontender, nondistended. Normal bowel sounds. No rebound or guarding. MUSCULOSKELETAL: No lower extremity edema bilaterally. NEUROLOGIC: No focal deficits. Results Result Diagram: 03/02/17 0620 03/02/17 0620 Results 24 hrs Laboratory Tests Test 03/02/17 06:20 White Blood Count 13.1 H Red Blood Count 3.93 L Hemoglobin 12.6 L Hematocrit 37.1 L Mean Corpuscular Volume 94.4 Mean Corpuscular Hemoglobin 32.1 Mean Corpuscular Hemoglobin Concent 34.0 Red Cell Distribution Width 12.5 Platelet Count 226 Mean Platelet Volume 10.6 H Neutrophils % 83.8 H Lymphocytes % 11.0 L Monocytes % 3.3 Eosinophils % 0.0 Basophils % 0.2 Nucleated Red Blood Cells % 0.0 Neutrophils # 11.0 H Lymphocytes # 1.4 Monocytes # 0.4 Eosinophils # 0.0 Basophils # 0.0 Nucleated Red Blood Cells # 0.0 Prothrombin Time 12.1 L Prothrombin Time Ratio 0.9 INR International Normalized Ratio 0.90 Activated Partial Thromboplast Time 21.8 L Sodium Level 138 Potassium Level 3.9 Chloride Level 103 Carbon Dioxide Level 26 Anion Gap 13 Blood Urea Nitrogen 11 Creatinine 0.66 Glucose Level 132 Calcium Level 9.2 Medications Medications Current Medications Ondansetron HCl (Zofran Inj) 4 mg Q6H PRN IV NAUSEA AND/OR VOMITING Last administered on 02/27/17 04:51; Admin Dose 4 MG; Start 02/26/17 at 18:00 Acetaminophen (Tylenol Tab) 650 mg Q6H PRN PO PAIN LEVEL 1-3 OR FEVER; Start at 18:00 Acetaminophen/ Hydrocodone Bitart ([place] (5/325)) 1 tab Q6H PRN PO MODERATE PAIN LEVEL 4-6 Last administered on 03/02/17 15:37; Admin Dose 1 TAB; Start at 18:00 Morphine Sulfate (morphine) 2 mg Q4H PRN IV SEVERE PAIN LEVEL 7-10 Last administered on 03/02/17 17:46; Admin Dose 2 MG; Start 02/26/17 at 18:00 Docusate Sodium (Colace) 100 mg Q12H PRN PO CONSTIPATION Last administered on 13:39; Admin Dose 100 MG; Start 02/26/17 at 18:00 Magnesium Hydroxide (Milk Of Mag) 30 ml DAILY PRN PO CONSTIPATION Last administered on 03/02/17 17:39; Admin Dose 30 ML; Start 02/26/17 at 18:00 Sodium Biphosphate/ Sodium Phosphate (Fleet Enema) [address] CONSTIPATION; Start 02/26/17 at 18:00 Pantoprazole (Protonix Tab) 40 mg DAILY@06 PO Last administered on 03/02/17 06: 07; Admin Dose 40 MG; Start 02/27/17 at 06:00 Heparin Sodium (Porcine) (Heparin (5000 Units/0.5 ml)) 5,000 unit Q12 SC Last administered on 03/01/17 09:23; Admin Dose 5,000 UNIT; Start 02/26/17 at 21:00 Hydralazine HCl (Apresoline) 10 mg Q6H PRN IV ELEVATED BLOOD PRESSURE; Start at 18:00 Nitroglycerin (Nitroglycerin (Sl Tab) 0.4 Mg) 1 tab Q5M PRN SL ANGINA; Start at 18:00 Citalopram Hydrobromide (Celexa) 40 mg DAILY PO Last administered on 03/02/17 09:25; Admin Dose 40 MG; Start 02/27/17 at 09:00 Estradiol (Estrace) 8 mg DAILY PO Last administered on 03/02/17 09:26; Admin Dose 8 MG; Start 02/27/17 at 10:00 Spironolactone (Aldactone) 300 mg DAILY PO Last administered on 03/02/17 09:25 ; Admin Dose 300 MG; Start 02/27/17 at 09:00 Chlordiazepoxide (Librium) 10 mg QID PO Last administered on 03/02/17 17:39; Admin Dose 10 MG; Start 02/26/17 at 18:30 Lorazepam 1 mg 1 mg Q1H PRN IV CONTROL WITHDRAWAL SYMPTOMS Last administered on 03/02/17 14:43; Admin Dose 1 MG; Start 02/26/17 at 19:00 Clindamycin HCl/ Dextrose (Cleocin 600 Mg/ D5W (Pmx)) 50 ml @ 50 mls/hr Q6 IVPB Last administered on 03/02/17 17:38; Admin Dose 50 MLS/HR; Start 02/27/17 at 00:00 IV Flush (NS 10 ml) 10 ml PRN PRN IV IV PROTOCOL; Start 02/26/17 at 21:00 Tramadol HCl (Ultram) 50 mg Q6H PRN PO PAIN Last administered on 02/28/17 20: 44; Admin Dose 50 MG; Start 02/27/17 at 20:00 Trazodone HCl (Desyrel) 100 mg HS PO Last administered on 03/01/17 22:19; Admin Dose 100 MG; Start 02/28/17 at 21:00 Gabapentin (Neurontin) 300 mg TID PO Last administered on 03/02/17 13:27; Admin Dose 300 MG; Start 02/28/17 at 09:00 Methylprednisolone Sodium Succinate (Solu-Medrol) 40 mg Q8 IV Last administered on 03/02/17 13:26; Admin Dose 40 MG; Start 02/28/17 at 09:00 Itraconazole (Sporanox) 100 mg DAILY PO ; Start 03/01/17 at 19:00 VANI GRIMES MD March 02, 2017 18:44
[2017-03-02 19:18] VITALS: BP 114/70; RESP 18
[2017-03-02] MEDS: LORAZEPAM 1 MG TAB PO PRN (20:21)
[2017-03-02] MEDS: morphine (ER) 15 MG TAB PO SCH (20:22)
[2017-03-02] MEDS ORDERED: morphine 2 MG INJ IV PRN (22:00)
[2017-03-02] MEDS: traZODone 100 MG TAB PO SCH (23:18)
[2017-03-02] MEDS: CLINDAMYCIN 150 MG CAP PO SCH (23:26)
[2017-03-03] MEDS: PANTOPRAZOLE (EC) 40 MG TAB PO SCH (06:21)
[2017-03-03] MEDS: HYDROCODONE/APAP (5/325) TAB PO PRN ×3 (06:21→22:45)
[2017-03-03] MEDS: CLINDAMYCIN 150 MG CAP PO SCH ×3 (06:21→22:43)
[2017-03-03] MEDS: LORAZEPAM 1 MG TAB PO PRN ×3 (06:21→21:03)
[2017-03-03] MEDS: HEPARIN 5,000 UNIT/0.5 ML VIAL SC SCH ×2 (09:00→21:09)
[2017-03-03] MEDS: ESTRADIOL 1 MG TAB PO SCH (10:03)
[2017-03-03] MEDS: CHLORDIAZEPOXIDE 5 MG CAP PO SCH ×4 (10:04→21:03)
[2017-03-03] MEDS: CITALOPRAM 20 MG TAB PO SCH (10:04)
[2017-03-03] MEDS: SPIRONOLACTONE 50 MG TAB PO SCH (10:05)
[2017-03-03] MEDS: predniSONE 20 MG TAB PO SCH (10:05)
[2017-03-03] MEDS: FLUCONAZOLE 100 MG TAB PO SCH (10:05)
[2017-03-03] MEDS: morphine (ER) 15 MG TAB PO SCH ×2 (10:05→21:04)
[2017-03-03] MEDS: GABAPENTIN 300 MG CAP PO SCH ×3 (10:05→21:04)
--- NOTE | 2017-03-03 16:56 | PN ---
Date/Time of Note Date/Time of Note DATE: 03/03/17 TIME: 16:54 Assessment/Plan VTE Prophylaxis VTE Prophylaxis Intervention: SCD's Lines/Catheters IV Catheter Type (from Nrsg): PICC Line Central line still needed: Yes (IV abx) Assessment/Plan Assessment/Plan 1. right neck swelling- s/p ENT consutl, on PO clindamycin 2. Alcohol intoxication. resolved, Ativan Po . 3. Psychiatric: Suicide ideation -appreciate psychiatric consult - Ativan PO p.r.n. for agitation. - Celexa, add Trazadone and Gabapentin 4. Gastrointestinal prophylaxis, proton pump inhibitor. 5. Deep venous thrombosis prophylaxis, heparin subQ 6. Hep C - + - monitor 7. asthma - duoneb's prn. changed to po prednisone Subjective 24 Hr Interval Summary Free Text/Dictation started on MS Contin for better pain control, IV morphine discontinued Exam/Review of Systems Vital Signs Vitals Vital Signs Date Time Temp Pulse Resp B/P Pulse Ox O2 Delivery O2 Flow Rate FiO2 03/02/17 19:18 98.3 65 18 114/70 98 02/27/17 08:48 Room Air Intake and Output 03/02/17 03/02/17 03/03/17 15:00 23:00 07:00 Intake Total 50 ml 1130 ml 1040 ml Balance 50 ml 1130 ml 1040 ml Exam GENERAL: The patient is alert, currently, no acute distress. HEENT: Pupils equal, round, react to light. Extraocular muscles intact. There is a right-sided swelling noted to the right parotid gland area with tenderness and also to the right neck area underneath the right mandible. NECK: Again, see above. Swelling on the right side of the neck. RESPIRATORY: Clear to auscultation bilaterally. CARDIOVASCULAR: S1, S2 heard. No rubs or gallops. ABDOMEN: Soft, nontender, nondistended. Normal bowel sounds. No rebound or guarding. MUSCULOSKELETAL: No lower extremity edema bilaterally. NEUROLOGIC: No focal deficits. Results Result Diagram: 03/02/1761903/02/17619 Medications Medications Current Medications Ondansetron HCl (Zofran Inj) 4 mg Q6H PRN IV NAUSEA AND/OR VOMITING Last administered on 02/27/17t 04:51; Admin Dose 4 MG; Start 02/26/17 at 18:00 Acetaminophen (Tylenol Tab) 650 mg Q6H PRN PO PAIN LEVEL 1-3 OR FEVER; Start at 18:00 Acetaminophen/ Hydrocodone Bitart ([place] (5/325)) 1 tab Q6H PRN PO MODERATE PAIN LEVEL 4-6 Last administered on 03/03/17 15:23; Admin Dose 1 TAB; Start at 18:00 Docusate Sodium (Colace) 100 mg Q12H PRN PO CONSTIPATION Last administered on 13:39; Admin Dose 100 MG; Start 02/26/17 at 18:00 Magnesium Hydroxide (Milk Of Mag) 30 ml DAILY PRN PO CONSTIPATION Last administered on 03/02/17 17:39; Admin Dose 30 ML; Start 02/26/17 at 18:00 Sodium Biphosphate/ Sodium Phosphate (Fleet Enema) 133 ml DAILY PRN [place] CONSTIPATION; Start 02/26/17 at 18:00 Pantoprazole (Protonix Tab) 40 mg DAILY@06 PO Last administered on 03/03/17 06: 21; Admin Dose 40 MG; Start 02/27/17 at 06:00 Heparin Sodium (Porcine) (Heparin (5000 Units/0.5 ml)) 5,000 unit Q12 SC Last administered on 03/01/17 09:23; Admin Dose 5,000 UNIT; Start 02/26/17 at 21:00 Nitroglycerin (Nitroglycerin (Sl Tab) 0.4 Mg) 1 tab Q5M PRN SL ANGINA; Start at 18:00 Citalopram Hydrobromide (Celexa) 40 mg DAILY PO Last administered on 03/03/17 10:04; Admin Dose 40 MG; Start 02/27/17 at 09:00 Estradiol (Estrace) 8 mg DAILY PO Last administered on 03/03/17 10:03; Admin Dose 8 MG; Start 02/27/17 at 10:00 Spironolactone (Aldactone) 300 mg DAILY PO Last administered on 03/03/17 10:05 ; Admin Dose 300 MG; Start 02/27/17 at 09:00 Chlordiazepoxide (Librium) 10 mg QID PO Last administered on 03/03/17 13:57; Admin Dose 10 MG; Start 02/26/17 at 18:30 IV Flush (NS 10 ml) 10 ml PRN PRN IV IV PROTOCOL; Start 02/26/17 at 21:00 Tramadol HCl (Ultram) 50 mg Q6H PRN PO PAIN Last administered on 02/28/17 20: 44; Admin Dose 50 MG; Start 02/27/17 at 20:00 Trazodone HCl (Desyrel) 100 mg HS PO Last administered on 03/02/17 23:18; Admin Dose 100 MG; Start 02/28/17 at 21:00 Gabapentin (Neurontin) 300 mg TID PO Last administered on 03/03/17 13:57; Admin Dose 300 MG; Start 02/28/17 at 09:00 Clindamycin HCl (Cleocin) 450 mg Q8 PO Last administered on 03/03/17 13:57; Admin Dose 450 MG; Start 03/03/17 at 00:00; Stop 03/08/17 at 14:01 Fluconazole (Diflucan) 100 mg DAILY PO Last administered on 03/03/17 10:05; Admin Dose 100 MG; Start 03/03/17 at 09:00; Stop 03/08/17 at 09:01 Prednisone (Prednisone) 40 mg DAILY PO Last administered on 03/03/17 10:05; Admin Dose 40 MG; Start 03/03/17 at 09:00 Lorazepam (Ativan) 1 mg Q6H PRN PO agitation, anxiety, withdrawal Last administered on 03/03/17 14:39; Admin Dose 1 MG; Start 03/02/17 at 19:00 Morphine Sulfate (Ms Contin (Er)) 15 mg BID PO Last administered on 03/03/17 10 :05; Admin Dose 15 MG; Start 03/02/17 at 21:00 VANI GRIMES MD March 03, 2017 16:56
[2017-03-03] MEDS: MAGNESIUM HYDROXIDE 30ML CUP PO PRN (18:25)
[2017-03-03] MEDS: DOCUSATE SODIUM 100 MG CAP PO PRN (18:26)
[2017-03-03] MEDS ORDERED: PERMETHRIN 1% 59 ML TOP ONE (18:30)
[2017-03-03 19:26] VITALS: BP 117/54; RESP 20
[2017-03-03] MEDS: traZODone 100 MG TAB PO SCH (21:03)
[2017-03-04] MEDS: LORAZEPAM 1 MG TAB PO PRN ×3 (05:49→19:42)
[2017-03-04] MEDS: PANTOPRAZOLE (EC) 40 MG TAB PO SCH (05:49)
[2017-03-04] MEDS: CLINDAMYCIN 150 MG CAP PO SCH ×3 (05:49→22:15)
[2017-03-04] MEDS: HEPARIN 5,000 UNIT/0.5 ML VIAL SC SCH ×2 (09:00→21:19)
[2017-03-04 10:41] VITALS: BP 114/60; RESP 16
[2017-03-04] MEDS: CHLORDIAZEPOXIDE 5 MG CAP PO SCH ×4 (10:47→21:12)
[2017-03-04] MEDS: predniSONE 20 MG TAB PO SCH (10:47)
[2017-03-04] MEDS: morphine (ER) 15 MG TAB PO SCH ×2 (10:47→21:12)
[2017-03-04] MEDS: GABAPENTIN 300 MG CAP PO SCH ×3 (10:48→21:11)
[2017-03-04] MEDS: SPIRONOLACTONE 50 MG TAB PO SCH (10:48)
[2017-03-04] MEDS: CITALOPRAM 20 MG TAB PO SCH (10:48)
[2017-03-04] MEDS: FLUCONAZOLE 100 MG TAB PO SCH (10:51)
[2017-03-04] MEDS: ESTRADIOL 1 MG TAB PO SCH (10:57)
[2017-03-04] MEDS: HYDROCODONE/APAP (5/325) TAB PO PRN ×2 (14:28→18:35)
[2017-03-04] MEDS ORDERED: PERMETHRIN 1% 59 ML TOP ONE ×2 (17:00→21:30)
[2017-03-04] MEDS: DOCUSATE SODIUM 100 MG CAP PO PRN (17:46)
--- NOTE | 2017-03-04 18:02 | PN ---
Date/Time of Note Date/Time of Note DATE: 03/04/17 TIME: 18:00 Assessment/Plan VTE Prophylaxis VTE Prophylaxis Intervention: heparin, SCD's Lines/Catheters IV Catheter Type (from Nrsg): PICC Line Central line still needed: Yes (Difficult Peripheral IV access ) Assessment/Plan Assessment/Plan 1. right neck swelling- s/p ENT consutl, on PO clindamycin 2. Alcohol intoxication. resolved, Ativan Po . 3. Psychiatric: Suicide ideation -appreciate psychiatric consult - Ativan PO p.r.n. for agitation. - Celexa, add Trazadone and Gabapentin 4. Gastrointestinal prophylaxis, proton pump inhibitor. 5. Deep venous thrombosis prophylaxis, heparin subQ 6. Hep C - + - monitor 7. asthma - on Po Prednisone Subjective 24 Hr Interval Summary Free Text/Dictation pain controlled with PO regimen , no acute events, BP stable Exam/Review of Systems Vital Signs Vitals Vital Signs Date Time Temp Pulse Resp B/P Pulse Ox O2 Delivery O2 Flow Rate FiO2 03/04/17 10:41 97.8 66 16 114/60 98 Intake and Output 03/03/17 03/03/17 03/04/17 15:00 23:00 07:00 Intake Total 1100 ml 1000 ml Balance 1100 ml 1000 ml Exam GENERAL: The patient is alert, currently, no acute distress. HEENT: Pupils equal, round, react to light. Extraocular muscles intact. right neck swelling improved much better NECK: Again, see above. Swelling on the right side of the neck. RESPIRATORY: Clear to auscultation bilaterally. CARDIOVASCULAR: S1, S2 heard. No rubs or gallops. ABDOMEN: Soft, nontender, nondistended. Normal bowel sounds. No rebound or guarding. MUSCULOSKELETAL: No lower extremity edema bilaterally. NEUROLOGIC: No focal deficits. Results Result Diagram: 03/02/1761903/02/17619 Medications Medications Current Medications Ondansetron HCl (Zofran Inj) 4 mg Q6H PRN IV NAUSEA AND/OR VOMITING Last administered on 02/27/17t 04:51; Admin Dose 4 MG; Start 02/26/17 at 18:00 Acetaminophen (Tylenol Tab) 650 mg Q6H PRN PO PAIN LEVEL 1-3 OR FEVER; Start at 18:00 Acetaminophen/ Hydrocodone Bitart ([place] (5/325)) 1 tab Q6H PRN PO MODERATE PAIN LEVEL 4-6 Last administered on 03/04/17 14:28; Admin Dose 1 TAB; Start at 18:00 Docusate Sodium (Colace) 100 mg Q12H PRN PO CONSTIPATION Last administered on 17:46; Admin Dose 100 MG; Start 02/26/17 at 18:00 Magnesium Hydroxide (Milk Of Mag) 30 ml DAILY PRN PO CONSTIPATION Last administered on 03/03/17 18:25; Admin Dose 30 ML; Start 02/26/17 at 18:00 Sodium Biphosphate/ Sodium Phosphate (Fleet Enema) 133 ml DAILY PRN [place] CONSTIPATION; Start 02/26/17 at 18:00 Pantoprazole (Protonix Tab) 40 mg DAILY@06 PO Last administered on 03/04/17 05: 49; Admin Dose 40 MG; Start 02/27/17 at 06:00 Heparin Sodium (Porcine) (Heparin (5000 Units/0.5 ml)) 5,000 unit Q12 SC Last administered on 03/03/17 21:09; Admin Dose 5,000 UNIT; Start 02/26/17 at 21:00 Nitroglycerin (Nitroglycerin (Sl Tab) 0.4 Mg) 1 tab Q5M PRN SL ANGINA; Start at 18:00 Citalopram Hydrobromide (Celexa) 40 mg DAILY PO Last administered on 03/04/17 10:48; Admin Dose 40 MG; Start 02/27/17 at 09:00 Estradiol (Estrace) 8 mg DAILY PO Last administered on 03/04/17 10:57; Admin Dose 8 MG; Start 02/27/17 at 10:00 Spironolactone (Aldactone) 300 mg DAILY PO Last administered on 03/04/17 10:48 ; Admin Dose 300 MG; Start 02/27/17 at 09:00 Chlordiazepoxide (Librium) 10 mg QID PO Last administered on 03/04/17 17:46; Admin Dose 10 MG; Start 02/26/17 at 18:30 IV Flush (NS 10 ml) 10 ml PRN PRN IV IV PROTOCOL; Start 02/26/17 at 21:00 Tramadol HCl (Ultram) 50 mg Q6H PRN PO PAIN Last administered on 02/28/17 20: 44; Admin Dose 50 MG; Start 02/27/17 at 20:00 Trazodone HCl (Desyrel) 100 mg HS PO Last administered on 03/03/17 21:03; Admin Dose 100 MG; Start 02/28/17 at 21:00 Gabapentin (Neurontin) 300 mg TID PO Last administered on 03/04/17 14:22; Admin Dose 300 MG; Start 02/28/17 at 09:00 Clindamycin HCl (Cleocin) 450 mg Q8 PO Last administered on 03/04/17 14:24; Admin Dose 450 MG; Start 03/03/17 at 00:00; Stop 03/08/17 at 14:01 Fluconazole (Diflucan) 100 mg DAILY PO Last administered on 03/04/17 10:51; Admin Dose 100 MG; Start 03/03/17 at 09:00; Stop 03/08/17 at 09:01 Prednisone (Prednisone) 40 mg DAILY PO Last administered on 03/04/17 10:47; Admin Dose 40 MG; Start 03/03/17 at 09:00 Lorazepam (Ativan) 1 mg Q6H PRN PO agitation, anxiety, withdrawal Last administered on 03/04/17 13:21; Admin Dose 1 MG; Start 03/02/17 at 19:00 Morphine Sulfate (Ms Contin (Er)) 15 mg BID PO Last administered on 03/04/17 10 :47; Admin Dose 15 MG; Start 03/02/17 at 21:00 Permethrin (Nix) 1 applic ONCE ONCE TOP ; Start 03/04/17 at 17:30; Stop 03/04/17 at 17:31; Status VANI HEREDIA MD March 04, 2017 18:02
--- NOTE | 2017-03-04 18:03 | PN ---
Date/Time of Note Date/Time of Note DATE: 03/04/17 TIME: 18:02 Assessment/Plan VTE Prophylaxis VTE Prophylaxis Intervention: heparin Lines/Catheters IV Catheter Type (from Nrsg): PICC Line Central line still needed: Yes (difficult peripheral access ) Assessment/Plan Assessment/Plan 1. right neck swelling- s/p ENT consutl, on PO clindamycin 2. Alcohol intoxication. resolved, Ativan Po . 3. Psychiatric: Suicide ideation -appreciate psychiatric consult - Ativan PO p.r.n. for agitation. - Celexa, add Trazadone and Gabapentin 4. Gastrointestinal prophylaxis, proton pump inhibitor. 5. Deep venous thrombosis prophylaxis, heparin subQ 6. Hep C - + - monitor 7. asthma - on Po Prednisone pt is medically cleared to go to Psych floor/facility Subjective 24 Hr Interval Summary Free Text/Dictation no acute events, Pain controlled, BP stable Exam/Review of Systems Vital Signs Vitals Vital Signs Date Time Temp Pulse Resp B/P Pulse Ox O2 Delivery O2 Flow Rate FiO2 03/04/17 10:41 97.8 66 16 114/60 98 Intake and Output 03/03/17 03/03/17 03/04/17 15:00 23:00 07:00 Intake Total 1100 ml 1000 ml Balance 1100 ml 1000 ml Exam GENERAL: The patient is alert, currently, no acute distress. HEENT: Pupils equal, round, react to light. Extraocular muscles intact. right neck swelling improved . NECK: Again, see above. Swelling on the right side of the neck. RESPIRATORY: Clear to auscultation bilaterally. CARDIOVASCULAR: S1, S2 heard. No rubs or gallops. ABDOMEN: Soft, nontender, nondistended. Normal bowel sounds. No rebound or guarding. MUSCULOSKELETAL: No lower extremity edema bilaterally. NEUROLOGIC: No focal deficits. Results Result Diagram: 03/02/1761903/02/17619 Medications Medications Current Medications Ondansetron HCl (Zofran Inj) 4 mg Q6H PRN IV NAUSEA AND/OR VOMITING Last administered on 02/27/17t 04:51; Admin Dose 4 MG; Start 02/26/17 at 18:00 Acetaminophen (Tylenol Tab) 650 mg Q6H PRN PO PAIN LEVEL 1-3 OR FEVER; Start at 18:00 Acetaminophen/ Hydrocodone Bitart ([place] (5/325)) 1 tab Q6H PRN PO MODERATE PAIN LEVEL 4-6 Last administered on 03/04/17 14:28; Admin Dose 1 TAB; Start at 18:00 Docusate Sodium (Colace) 100 mg Q12H PRN PO CONSTIPATION Last administered on 17:46; Admin Dose 100 MG; Start 02/26/17 at 18:00 Magnesium Hydroxide (Milk Of Mag) 30 ml DAILY PRN PO CONSTIPATION Last administered on 03/03/17 18:25; Admin Dose 30 ML; Start 02/26/17 at 18:00 Sodium Biphosphate/ Sodium Phosphate (Fleet Enema) 133 ml DAILY PRN [place] CONSTIPATION; Start 02/26/17 at 18:00 Pantoprazole (Protonix Tab) 40 mg DAILY@06 PO Last administered on 03/04/17 05: 49; Admin Dose 40 MG; Start 02/27/17 at 06:00 Heparin Sodium (Porcine) (Heparin (5000 Units/0.5 ml)) 5,000 unit Q12 SC Last administered on 03/03/17 21:09; Admin Dose 5,000 UNIT; Start 02/26/17 at 21:00 Nitroglycerin (Nitroglycerin (Sl Tab) 0.4 Mg) 1 tab Q5M PRN SL ANGINA; Start at 18:00 Citalopram Hydrobromide (Celexa) 40 mg DAILY PO Last administered on 03/04/17 10:48; Admin Dose 40 MG; Start 02/27/17 at 09:00 Estradiol (Estrace) 8 mg DAILY PO Last administered on 03/04/17 10:57; Admin Dose 8 MG; Start 02/27/17 at 10:00 Spironolactone (Aldactone) 300 mg DAILY PO Last administered on 03/04/17 10:48 ; Admin Dose 300 MG; Start 02/27/17 at 09:00 Chlordiazepoxide (Librium) 10 mg QID PO Last administered on 03/04/17 17:46; Admin Dose 10 MG; Start 02/26/17 at 18:30 IV Flush (NS 10 ml) 10 ml PRN PRN IV IV PROTOCOL; Start 02/26/17 at 21:00 Tramadol HCl (Ultram) 50 mg Q6H PRN PO PAIN Last administered on 02/28/17 20: 44; Admin Dose 50 MG; Start 02/27/17 at 20:00 Trazodone HCl (Desyrel) 100 mg HS PO Last administered on 03/03/17 21:03; Admin Dose 100 MG; Start 02/28/17 at 21:00 Gabapentin (Neurontin) 300 mg TID PO Last administered on 03/04/17 14:22; Admin Dose 300 MG; Start 02/28/17 at 09:00 Clindamycin HCl (Cleocin) 450 mg Q8 PO Last administered on 03/04/17 14:24; Admin Dose 450 MG; Start 03/03/17 at 00:00; Stop 03/08/17 at 14:01 Fluconazole (Diflucan) 100 mg DAILY PO Last administered on 03/04/17 10:51; Admin Dose 100 MG; Start 03/03/17 at 09:00; Stop 03/08/17 at 09:01 Prednisone (Prednisone) 40 mg DAILY PO Last administered on 03/04/17 10:47; Admin Dose 40 MG; Start 03/03/17 at 09:00 Lorazepam (Ativan) 1 mg Q6H PRN PO agitation, anxiety, withdrawal Last administered on 03/04/17 13:21; Admin Dose 1 MG; Start 03/02/17 at 19:00 Morphine Sulfate (Ms Contin (Er)) 15 mg BID PO Last administered on 03/04/17 10 :47; Admin Dose 15 MG; Start 03/02/17 at 21:00 Permethrin (Nix) 1 applic ONCE ONCE TOP ; Start 03/04/17 at 17:30; Stop 03/04/17 at 17:31; Status UNVANI GARCIA MD March 04, 2017 18:03
[2017-03-04 19:18] VITALS: BP 129/74; RESP 18
[2017-03-04] MEDS: traZODone 100 MG TAB PO SCH (21:13)
[2017-03-05] MEDS: HYDROCODONE/APAP (5/325) TAB PO PRN ×2 (00:55→17:49)
[2017-03-05] MEDS: CLINDAMYCIN 150 MG CAP PO SCH ×3 (07:28→22:12)
[2017-03-05] MEDS: PANTOPRAZOLE (EC) 40 MG TAB PO SCH (07:29)
[2017-03-05] MEDS: HEPARIN 5,000 UNIT/0.5 ML VIAL SC SCH ×2 (09:00→20:32)
[2017-03-05] MEDS: SPIRONOLACTONE 50 MG TAB PO SCH (09:52)
[2017-03-05] MEDS: CITALOPRAM 20 MG TAB PO SCH (09:53)
[2017-03-05] MEDS: ESTRADIOL 1 MG TAB PO SCH (09:53)
[2017-03-05] MEDS: predniSONE 20 MG TAB PO SCH (09:53)
[2017-03-05] MEDS: GABAPENTIN 300 MG CAP PO SCH ×3 (09:53→20:27)
[2017-03-05] MEDS: FLUCONAZOLE 100 MG TAB PO SCH (09:54)
[2017-03-05] MEDS: CHLORDIAZEPOXIDE 5 MG CAP PO SCH ×4 (09:54→20:27)
[2017-03-05] MEDS: morphine (ER) 15 MG TAB PO SCH ×2 (09:55→20:28)
[2017-03-05] MEDS ORDERED: PERMETHRIN 1% 59 ML TOP ONE ×2 (13:53→15:00)
[2017-03-05] MEDS: LORAZEPAM 1 MG TAB PO PRN ×2 (16:01→22:12)
[2017-03-05] MEDS: DOCUSATE SODIUM 100 MG CAP PO PRN (16:02)
--- NOTE | 2017-03-05 17:30 | PN ---
Date/Time of Note Date/Time of Note DATE: 03/05/17 TIME: 17:29 Assessment/Plan VTE Prophylaxis VTE Prophylaxis Intervention: SCD's Lines/Catheters IV Catheter Type (from Nrsg): PICC Line Central line still needed: Yes (difficult peripheral access ) Urinary Cath still in place: No Assessment/Plan Assessment/Plan 1. right neck swelling- s/p ENT consutl, on PO clindamycin 2. Alcohol intoxication. resolved, Ativan Po . 3. Psychiatric: Suicide ideation -appreciate psychiatric consult - Ativan PO p.r.n. for agitation. - Celexa, add Trazadone and Gabapentin 4. Gastrointestinal prophylaxis, proton pump inhibitor. 5. Deep venous thrombosis prophylaxis, heparin subQ 6. Hep C - + - monitor 7. asthma - on Po Prednisone pt is medically cleared to go to Psych floor/facility Subjective 24 Hr Interval Summary Free Text/Dictation pain controlled on PO regimen, BP stable Exam/Review of Systems Vital Signs Vitals Vital Signs Date Time Temp Pulse Resp B/P Pulse Ox O2 Delivery O2 Flow Rate FiO2 03/04/17 19:18 98.5 65 18 129/74 97 Intake and Output 03/04/17 03/04/17 03/05/17 15:00 23:00 07:00 Intake Total 400 ml Balance 400 ml Exam GENERAL: The patient is alert, currently, no acute distress. HEENT: Pupils equal, round, react to light. Extraocular muscles intact. right neck swelling improved . NECK: Again, see above. Swelling on the right side of the neck. RESPIRATORY: Clear to auscultation bilaterally. CARDIOVASCULAR: S1, S2 heard. No rubs or gallops. ABDOMEN: Soft, nontender, nondistended. Normal bowel sounds. No rebound or guarding. MUSCULOSKELETAL: No lower extremity edema bilaterally. NEUROLOGIC: No focal deficits. Results Result Diagram: 03/02/1761903/02/17619 Medications Medications Current Medications Ondansetron HCl (Zofran Inj) 4 mg Q6H PRN IV NAUSEA AND/OR VOMITING Last administered on 02/27/17t 04:51; Admin Dose 4 MG; Start 02/26/17 at 18:00 Acetaminophen (Tylenol Tab) 650 mg Q6H PRN PO PAIN LEVEL 1-3 OR FEVER; Start at 18:00 Acetaminophen/ Hydrocodone Bitart ([place] (5/325)) 1 tab Q6H PRN PO MODERATE PAIN LEVEL 4-6 Last administered on 03/05/17 00:55; Admin Dose 1 TAB; Start at 18:00 Docusate Sodium (Colace) 100 mg Q12H PRN PO CONSTIPATION Last administered on 16:02; Admin Dose 100 MG; Start 02/26/17 at 18:00 Magnesium Hydroxide (Milk Of Mag) 30 ml DAILY PRN PO CONSTIPATION Last administered on 03/03/17 18:25; Admin Dose 30 ML; Start 02/26/17 at 18:00 Sodium Biphosphate/ Sodium Phosphate (Fleet Enema) 133 ml DAILY PRN [place] CONSTIPATION; Start 02/26/17 at 18:00 Pantoprazole (Protonix Tab) 40 mg DAILY@06 PO Last administered on 03/04/17 05: 49; Admin Dose 40 MG; Start 02/27/17 at 06:00 Heparin Sodium (Porcine) (Heparin (5000 Units/0.5 ml)) 5,000 unit Q12 SC Last administered on 03/04/17 21:19; Admin Dose 5,000 UNIT; Start 02/26/17 at 21:00 Nitroglycerin (Nitroglycerin (Sl Tab) 0.4 Mg) 1 tab Q5M PRN SL ANGINA; Start at 18:00 Citalopram Hydrobromide (Celexa) 40 mg DAILY PO Last administered on 03/05/17 09:53; Admin Dose 40 MG; Start 02/27/17 at 09:00 Estradiol (Estrace) 8 mg DAILY PO Last administered on 03/05/17 09:53; Admin Dose 8 MG; Start 02/27/17 at 10:00 Spironolactone (Aldactone) 300 mg DAILY PO Last administered on 03/05/17 09:52 ; Admin Dose 300 MG; Start 02/27/17 at 09:00 Chlordiazepoxide (Librium) 10 mg QID PO Last administered on 03/05/17 14:21; Admin Dose 10 MG; Start 02/26/17 at 18:30 IV Flush (NS 10 ml) 10 ml PRN PRN IV IV PROTOCOL; Start 02/26/17 at 21:00 Tramadol HCl (Ultram) 50 mg Q6H PRN PO PAIN Last administered on 02/28/17 20: 44; Admin Dose 50 MG; Start 02/27/17 at 20:00 Trazodone HCl (Desyrel) 100 mg HS PO Last administered on 03/04/17 21:13; Admin Dose 100 MG; Start 02/28/17 at 21:00 Gabapentin (Neurontin) 300 mg TID PO Last administered on 03/05/17 14:21; Admin Dose 300 MG; Start 02/28/17 at 09:00 Clindamycin HCl (Cleocin) 450 mg Q8 PO Last administered on 03/05/17 14:22; Admin Dose 450 MG; Start 03/03/17 at 00:00; Stop 03/08/17 at 14:01 Fluconazole (Diflucan) 100 mg DAILY PO Last administered on 03/05/17 09:54; Admin Dose 100 MG; Start 03/03/17 at 09:00; Stop 03/08/17 at 09:01 Prednisone (Prednisone) 40 mg DAILY PO Last administered on 03/05/17 09:53; Admin Dose 40 MG; Start 03/03/17 at 09:00 Lorazepam (Ativan) 1 mg Q6H PRN PO agitation, anxiety, withdrawal Last administered on 03/05/17 16:01; Admin Dose 1 MG; Start 03/02/17 at 19:00 Morphine Sulfate (Ms Contin (Er)) 15 mg BID PO Last administered on 03/05/17 09 :55; Admin Dose 15 MG; Start 03/02/17 at 21:00 Permethrin (Nix) 1 applic ONCE ONCE TOP ; Start 03/06/17 at 14:00; Stop 03/06/17 at 14:01 Permethrin (Nix) 1 applic ONCE ONCE TOP ; Start 03/07/17 at 14:00; Stop 03/07/17 at 14:01 VANI GRIMES MD March 05, 2017 17:30
[2017-03-05 19:34] VITALS: BP 139/66; RESP 19
[2017-03-05] MEDS: traZODone 100 MG TAB PO SCH (20:28)
[2017-03-06] MEDS: PANTOPRAZOLE (EC) 40 MG TAB PO SCH (05:38)
[2017-03-06] MEDS: LORAZEPAM 1 MG TAB PO PRN ×3 (05:38→20:25)
[2017-03-06] MEDS: CLINDAMYCIN 150 MG CAP PO SCH ×2 (05:38→13:10)
[2017-03-06] MEDS: HEPARIN 5,000 UNIT/0.5 ML VIAL SC SCH ×2 (09:00→20:26)
[2017-03-06] MEDS: GABAPENTIN 300 MG CAP PO SCH ×3 (09:27→20:25)
[2017-03-06] MEDS: CHLORDIAZEPOXIDE 5 MG CAP PO SCH ×4 (09:27→20:26)
[2017-03-06] MEDS: ESTRADIOL 1 MG TAB PO SCH (09:27)
[2017-03-06] MEDS: predniSONE 20 MG TAB PO SCH (09:28)
[2017-03-06] MEDS: morphine (ER) 15 MG TAB PO SCH ×2 (09:28→20:25)
[2017-03-06] MEDS: CITALOPRAM 20 MG TAB PO SCH (09:28)
[2017-03-06] MEDS: SPIRONOLACTONE 50 MG TAB PO SCH (09:28)
[2017-03-06] MEDS: FLUCONAZOLE 100 MG TAB PO SCH (09:29)
[2017-03-06 10:04] VITALS: BP 95/50; RESP 18
[2017-03-06] MEDS ORDERED: PERMETHRIN 1% 59 ML TOP ONE (14:00)
--- NOTE | 2017-03-06 14:19 | PN ---
Date/Time of Note Date/Time of Note DATE: 03/06/17 TIME: 14:18 Assessment/Plan VTE Prophylaxis VTE Prophylaxis Intervention: heparin Lines/Catheters IV Catheter Type (from Nrsg): PICC Line Central line still needed: Yes (difficult peripheral access, ) Urinary Cath still in place: No Assessment/Plan Assessment/Plan 1. right neck swelling- s/p ENT consutl, on PO clindamycin 2. Alcohol intoxication. resolved, Ativan Po . 3. Psychiatric: Suicide ideation -appreciate psychiatric consult - Ativan PO p.r.n. for agitation. - Celexa, add Trazadone and Gabapentin 4. Gastrointestinal prophylaxis, proton pump inhibitor. 5. Deep venous thrombosis prophylaxis, heparin subQ 6. Hep C - + - monitor 7. asthma - on Po Prednisone pt is medically cleared to go to Psych floor/facility Subjective 24 Hr Interval Summary Free Text/Dictation no acute events, pain controlled Exam/Review of Systems Vital Signs Vitals Vital Signs Date Time Temp Pulse Resp B/P Pulse Ox O2 Delivery O2 Flow Rate FiO2 03/06/17 10:04 98.0 68 18 95/50 98 Intake and Output 03/05/17 03/05/17 03/06/17 15:00 23:00 07:00 Intake Total 1500 ml 900 ml Balance 1500 ml 900 ml Exam GENERAL: The patient is alert, currently, no acute distress. HEENT: Pupils equal, round, react to light. Extraocular muscles intact. right neck swelling improved . NECK: Again, see above. Swelling on the right side of the neck. RESPIRATORY: Clear to auscultation bilaterally. CARDIOVASCULAR: S1, S2 heard. No rubs or gallops. ABDOMEN: Soft, nontender, nondistended. Normal bowel sounds. No rebound or guarding. MUSCULOSKELETAL: No lower extremity edema bilaterally. NEUROLOGIC: No focal deficits. Results Result Diagram: 03/02/1761903/02/17619 Medications Medications Current Medications Ondansetron HCl (Zofran Inj) 4 mg Q6H PRN IV NAUSEA AND/OR VOMITING Last administered on 02/27/17t 04:51; Admin Dose 4 MG; Start 02/26/17 at 18:00 Acetaminophen (Tylenol Tab) 650 mg Q6H PRN PO PAIN LEVEL 1-3 OR FEVER; Start at 18:00 Acetaminophen/ Hydrocodone Bitart ([place] (5/325)) 1 tab Q6H PRN PO MODERATE PAIN LEVEL 4-6 Last administered on 03/05/17 17:49; Admin Dose 1 TAB; Start at 18:00 Docusate Sodium (Colace) 100 mg Q12H PRN PO CONSTIPATION Last administered on 16:02; Admin Dose 100 MG; Start 02/26/17 at 18:00 Magnesium Hydroxide (Milk Of Mag) 30 ml DAILY PRN PO CONSTIPATION Last administered on 03/03/17 18:25; Admin Dose 30 ML; Start 02/26/17 at 18:00 Sodium Biphosphate/ Sodium Phosphate (Fleet Enema) 133 ml DAILY PRN [place] CONSTIPATION; Start 02/26/17 at 18:00 Pantoprazole (Protonix Tab) 40 mg DAILY@06 PO Last administered on 03/06/17 05: 38; Admin Dose 40 MG; Start 02/27/17 at 06:00 Heparin Sodium (Porcine) (Heparin (5000 Units/0.5 ml)) 5,000 unit Q12 SC Last administered on 03/05/17 20:32; Admin Dose 5,000 UNIT; Start 02/26/17 at 21:00 Nitroglycerin (Nitroglycerin (Sl Tab) 0.4 Mg) 1 tab Q5M PRN SL ANGINA; Start at 18:00 Citalopram Hydrobromide (Celexa) 40 mg DAILY PO Last administered on 03/06/17 09:28; Admin Dose 40 MG; Start 02/27/17 at 09:00 Estradiol (Estrace) 8 mg DAILY PO Last administered on 03/06/17 09:27; Admin Dose 8 MG; Start 02/27/17 at 10:00 Spironolactone (Aldactone) 300 mg DAILY PO Last administered on 03/06/17 09:28 ; Admin Dose 300 MG; Start 02/27/17 at 09:00 Chlordiazepoxide (Librium) 10 mg QID PO Last administered on 03/06/17 13:10; Admin Dose 10 MG; Start 02/26/17 at 18:30 IV Flush (NS 10 ml) 10 ml PRN PRN IV IV PROTOCOL; Start 02/26/17 at 21:00 Tramadol HCl (Ultram) 50 mg Q6H PRN PO PAIN Last administered on 02/28/17 20: 44; Admin Dose 50 MG; Start 02/27/17 at 20:00 Trazodone HCl (Desyrel) 100 mg HS PO Last administered on 03/05/17 20:28; Admin Dose 100 MG; Start 02/28/17 at 21:00 Gabapentin (Neurontin) 300 mg TID PO Last administered on 03/06/17 13:10; Admin Dose 300 MG; Start 02/28/17 at 09:00 Clindamycin HCl (Cleocin) 450 mg Q8 PO Last administered on 03/06/17 13:10; Admin Dose 450 MG; Start 03/03/17 at 00:00; Stop 03/08/17 at 14:01 Fluconazole (Diflucan) 100 mg DAILY PO Last administered on 03/06/17 09:29; Admin Dose 100 MG; Start 03/03/17 at 09:00; Stop 03/08/17 at 09:01 Prednisone (Prednisone) 40 mg DAILY PO Last administered on 03/06/17 09:28; Admin Dose 40 MG; Start 03/03/17 at 09:00 Lorazepam (Ativan) 1 mg Q6H PRN PO agitation, anxiety, withdrawal Last administered on 03/06/17 05:38; Admin Dose 1 MG; Start 03/02/17 at 19:00 Morphine Sulfate (Ms Contin (Er)) 15 mg BID PO Last administered on 03/06/17 09 :28; Admin Dose 15 MG; Start 03/02/17 at 21:00 Permethrin (Nix) 1 applic ONCE ONCE TOP ; Start 03/07/17 at 14:00; Stop 03/07/17 at 14:01 VANI GRIMES MD March 06, 2017 14:19
[2017-03-06] MEDS: HYDROCODONE/APAP (5/325) TAB PO PRN ×2 (16:25→22:39)
[2017-03-06 19:40] VITALS: BP 121/65; RESP 20
[2017-03-06] MEDS: traZODone 100 MG TAB PO SCH (20:26)
[2017-03-06] MEDS: DOCUSATE SODIUM 100 MG CAP PO PRN (22:39)
[2017-03-07] MEDS: CLINDAMYCIN 150 MG CAP PO SCH ×4 (01:52→22:15)
[2017-03-07] MEDS: HYDROCODONE/APAP (5/325) TAB PO PRN ×3 (06:11→19:55)
[2017-03-07] MEDS: PANTOPRAZOLE (EC) 40 MG TAB PO SCH (06:11)
[2017-03-07] MEDS: LORAZEPAM 1 MG TAB PO PRN ×3 (06:11→19:54)
[2017-03-07] MEDS: HEPARIN 5,000 UNIT/0.5 ML VIAL SC SCH ×2 (09:00→22:20)
[2017-03-07] MEDS: GABAPENTIN 300 MG CAP PO SCH ×3 (09:04→20:43)
[2017-03-07] MEDS: SPIRONOLACTONE 50 MG TAB PO SCH (09:04)
[2017-03-07] MEDS: FLUCONAZOLE 100 MG TAB PO SCH (09:04)
[2017-03-07] MEDS: CITALOPRAM 20 MG TAB PO SCH (09:04)
[2017-03-07] MEDS: ESTRADIOL 1 MG TAB PO SCH (09:05)
[2017-03-07] MEDS: morphine (ER) 15 MG TAB PO SCH ×2 (09:05→20:44)
[2017-03-07] MEDS: predniSONE 20 MG TAB PO SCH (09:05)
[2017-03-07] MEDS: CHLORDIAZEPOXIDE 5 MG CAP PO SCH ×4 (09:05→20:43)
--- NOTE | 2017-03-07 11:38 | PN ---
Date/Time of Note Date/Time of Note DATE: 03/07/17 TIME: 11:34 Assessment/Plan VTE Prophylaxis VTE Prophylaxis Intervention: SCD's Lines/Catheters IV Catheter Type (from Nrsg): PICC Line Central line still needed: Yes (Iv abx, difficult peripheral acc) Urinary Cath still in place: No Assessment/Plan Assessment/Plan 1. right neck swelling- s/p ENT consutl, on PO clindamycin 2. Alcohol intoxication. resolved, Ativan Po . 3. Psychiatric: Suicide ideation -appreciate psychiatric consult - Ativan PO p.r.n. for agitation. - Celexa, add Trazadone and Gabapentin 4. Gastrointestinal prophylaxis, proton pump inhibitor. 5. Deep venous thrombosis prophylaxis, heparin subQ 6. Hep C - + - monitor 7. asthma - on Po Prednisone pt is medically cleared to go to Psych floor/facility Subjective 24 Hr Interval Summary Free Text/Dictation no acute evens, pain controlled with IV dilauid 1.5 Exam/Review of Systems Vital Signs Vitals Vital Signs Date Time Temp Pulse Resp B/P Pulse Ox O2 Delivery O2 Flow Rate FiO2 03/06/17 19:40 98.5 68 20 121/65 97 Intake and Output 03/06/17 03/06/17 03/07/17 15:00 23:00 07:00 Intake Total 1200 ml 600 ml Balance 1200 ml 600 ml Exam GENERAL: The patient is alert, currently, no acute distress. HEENT: Pupils equal, round, react to light. Extraocular muscles intact. right neck swelling improved . NECK: Again, see above. Swelling on the right side of the neck. RESPIRATORY: Clear to auscultation bilaterally. CARDIOVASCULAR: S1, S2 heard. No rubs or gallops. ABDOMEN: Soft, nontender, nondistended. Normal bowel sounds. No rebound or guarding. MUSCULOSKELETAL: No lower extremity edema bilaterally. NEUROLOGIC: No focal deficits. Medications Medications Current Medications Ondansetron HCl (Zofran Inj) 4 mg Q6H PRN IV NAUSEA AND/OR VOMITING Last administered on 02/27/17t 04:51; Admin Dose 4 MG; Start 02/26/17 at 18:00 Acetaminophen (Tylenol Tab) 650 mg Q6H PRN PO PAIN LEVEL 1-3 OR FEVER; Start at 18:00 Acetaminophen/ Hydrocodone Bitart ([place] (5/325)) 1 tab Q6H PRN PO MODERATE PAIN LEVEL 4-6 Last administered on 03/07/17 06:11; Admin Dose 1 TAB; Start at 18:00 Docusate Sodium (Colace) 100 mg Q12H PRN PO CONSTIPATION Last administered on 22:39; Admin Dose 100 MG; Start 02/26/17 at 18:00 Magnesium Hydroxide (Milk Of Mag) 30 ml DAILY PRN PO CONSTIPATION Last administered on 03/03/17 18:25; Admin Dose 30 ML; Start 02/26/17 at 18:00 Sodium Biphosphate/ Sodium Phosphate (Fleet Enema) 133 ml DAILY PRN [place] CONSTIPATION; Start 02/26/17 at 18:00 Pantoprazole (Protonix Tab) 40 mg DAILY@06 PO Last administered on 03/07/17 06: 11; Admin Dose 40 MG; Start 02/27/17 at 06:00 Heparin Sodium (Porcine) (Heparin (5000 Units/0.5 ml)) 5,000 unit Q12 SC Last administered on 03/05/17 20:32; Admin Dose 5,000 UNIT; Start 02/26/17 at 21:00 Nitroglycerin (Nitroglycerin (Sl Tab) 0.4 Mg) 1 tab Q5M PRN SL ANGINA; Start at 18:00 Citalopram Hydrobromide (Celexa) 40 mg DAILY PO Last administered on 03/07/17 09:04; Admin Dose 40 MG; Start 02/27/17 at 09:00 Estradiol (Estrace) 8 mg DAILY PO Last administered on 03/07/17 09:05; Admin Dose 8 MG; Start 02/27/17 at 10:00 Spironolactone (Aldactone) 300 mg DAILY PO Last administered on 03/07/17 09:04 ; Admin Dose 300 MG; Start 02/27/17 at 09:00 Chlordiazepoxide (Librium) 10 mg QID PO Last administered on 03/07/17 09:05; Admin Dose 10 MG; Start 02/26/17 at 18:30 IV Flush (NS 10 ml) 10 ml PRN PRN IV IV PROTOCOL; Start 02/26/17 at 21:00 Tramadol HCl (Ultram) 50 mg Q6H PRN PO PAIN Last administered on 02/28/17 20: 44; Admin Dose 50 MG; Start 02/27/17 at 20:00 Trazodone HCl (Desyrel) 100 mg HS PO Last administered on 03/06/17 20:26; Admin Dose 100 MG; Start 02/28/17 at 21:00 Gabapentin (Neurontin) 300 mg TID PO Last administered on 03/07/17 09:04; Admin Dose 300 MG; Start 02/28/17 at 09:00 Clindamycin HCl (Cleocin) 450 mg Q8 PO Last administered on 03/07/17 06:11; Admin Dose 450 MG; Start 03/03/17 at 00:00; Stop 03/08/17 at 14:01 Fluconazole (Diflucan) 100 mg DAILY PO Last administered on 03/07/17 09:04; Admin Dose 100 MG; Start 03/03/17 at 09:00; Stop 03/08/17 at 09:01 Prednisone (Prednisone) 40 mg DAILY PO Last administered on 03/07/17 09:05; Admin Dose 40 MG; Start 03/03/17 at 09:00 Lorazepam (Ativan) 1 mg Q6H PRN PO agitation, anxiety, withdrawal Last administered on 03/07/17 06:11; Admin Dose 1 MG; Start 03/02/17 at 19:00 Morphine Sulfate (Ms Contin (Er)) 15 mg BID PO Last administered on 03/07/17 09 :05; Admin Dose 15 MG; Start 03/02/17 at 21:00 Permethrin (Nix) 1 applic ONCE ONCE TOP ; Start 03/07/17 at 14:00; Stop 03/07/17 at 14:01 VANI GRIMES MD March 07, 2017 11:38
[2017-03-07] MEDS ORDERED: PERMETHRIN 1% 59 ML TOP ONE (14:00)
[2017-03-07] MEDS: DOCUSATE SODIUM 100 MG CAP PO PRN (17:20)
[2017-03-07 19:58] VITALS: BP 121/68; PULSE 71; RESP 20
[2017-03-08] MEDS: traZODone 100 MG TAB PO SCH (01:34)
[2017-03-08 05:29] LABS: ADD SCAN DIFF NO
[2017-03-08 06:05] LABS: BASOPHIL # 0.1 10^3/ul (0.0-0.1); BASOPHILS % 0.3 % (0.0-2.0); EOSINOPHILS % 0.3 % (0.0-7.0); HEMATOCRIT 40.3 % (42.0-52.0); HEMOGLOBIN 13.6 g/dl (14.0-18.0); LYMPHOCYTES # 2.8 10^3/ul (0.8-2.9); LYMPHOCYTES % 18.8 % (15.0-51.0); MEAN CORPUSCULAR HEMOGLOBIN 32.4 pg (29.0-33.0); MEAN CORPUSCULAR HGB CONC 33.7 g/dl (32.0-37.0); MEAN PLATELET VOLUME 10.3 fl (7.4-10.4); MONOCYTE # 0.8 10^3/ul (0.3-0.9); MONOCYTES % 5.6 % (0.0-11.0); NEUTROPHIL # 10.6 10^3/ul (1.6-7.5); PLATELET COUNT 264 10^3/UL (140-415); RED CELL DISTRIBUTION WIDTH 12.9 % (11.5-14.5); WHITE BLOOD COUNT 14.7 10^3/ul (4.8-10.8)
[2017-03-08] MEDS: HYDROCODONE/APAP (5/325) TAB PO PRN ×3 (06:05→19:02)
[2017-03-08] MEDS: CLINDAMYCIN 150 MG CAP PO SCH ×2 (06:05→15:47)
[2017-03-08] MEDS: PANTOPRAZOLE (EC) 40 MG TAB PO SCH (06:05)
[2017-03-08] MEDS: LORAZEPAM 1 MG TAB PO PRN ×3 (06:05→19:02)
[2017-03-08 06:07] LABS: INR 0.88; PARTIAL THROMBOPLASTIN TIME 24.2 Sec (25.0-35.0); PROTIME 11.9 Sec (12.2-14.2); PT RATIO 0.9
[2017-03-08 07:22] LABS: CALCIUM 9.3 mg/dl (8.4-10.2); CREATININE 0.73 mg/dl (0.61-1.24); POTASSIUM 3.9 mmol/L (3.5-5.1)
[2017-03-08] MEDS: HEPARIN 5,000 UNIT/0.5 ML VIAL SC SCH ×2 (09:00→16:08)
[2017-03-08] MEDS: SPIRONOLACTONE 50 MG TAB PO SCH (09:30)
[2017-03-08] MEDS: CITALOPRAM 20 MG TAB PO SCH (09:31)
[2017-03-08] MEDS: FLUCONAZOLE 100 MG TAB PO SCH (09:31)
[2017-03-08] MEDS: ESTRADIOL 1 MG TAB PO SCH (09:32)
[2017-03-08] MEDS: CHLORDIAZEPOXIDE 5 MG CAP PO SCH ×4 (09:34→21:14)
[2017-03-08] MEDS: morphine (ER) 15 MG TAB PO SCH ×2 (09:35→21:00)
[2017-03-08] MEDS: GABAPENTIN 300 MG CAP PO SCH ×3 (09:36→20:59)
[2017-03-08] MEDS: predniSONE 20 MG TAB PO SCH (09:36)
[2017-03-08 09:42] VITALS: BP 101/50; RESP 20
--- NOTE | 2017-03-08 13:11 | PN ---
Date/Time of Note Date/Time of Note DATE: 03/08/17 TIME: 13:09 Assessment/Plan VTE Prophylaxis VTE Prophylaxis Intervention: SCD's Lines/Catheters IV Catheter Type (from Nrs): PICC Line Central line still needed: Yes Urinary Cath still in place: No Assessment/Plan Chief Complaint/Hosp Course Assessment/Plan Assessment/Plan 1. right neck swelling- s/p ENT consutl, continue PO clindamycin 2. Alcohol intoxication. resolved, Ativan as needed and Librium . 3. Psychiatric: Suicide ideation -appreciate psychiatric consult - Ativan PO p.r.n. for agitation. - Celexa, add Trazadone and Gabapentin -Waiting for psych placement 4. Gastrointestinal prophylaxis, proton pump inhibitor. 5. Deep venous thrombosis prophylaxis, heparin subQ 6. Hep C - + - monitor 7. asthma - on Po Prednisone pt is medically cleared to go to Psych floor/facility Problems: Subjective 24 Hr Interval Summary Free Text/Dictation Patient denies of any chest pain or shortness of breath Awaiting for psych placement Tolerating oral intake Exam/Review of Systems Vital Signs Vitals Vital Signs Date Time Temp Pulse Resp B/P Pulse Ox O2 Delivery O2 Flow Rate FiO2 03/08/17 09:42 97.9 58 20 101/50 93 03/07/17 19:58 Room Air Intake and Output 03/07/17 03/07/17 03/08/17 15:00 23:00 07:00 Intake Total 1410 ml 680 ml Balance 1410 ml 680 ml Exam General: The patient is moderately overweight, Not in acute distress. HEENT: Atraumatic, normocephalic. The pupils are equal and round . Neck: Supple with full range of motion. Chest: Normal expansion of the thorax during inspiration Lungs: Clear to auscultation bilaterally Heart: Normal S1-S2, Regular rhythm and rate. Abdomen: Soft , nontender, nondistended , bowel sounds are present. Extremities: Normal to inspection, no edema no cyanosis Neurologic: Normal mental status,The patient is awake, alert and oriented . Results Result Diagram: 03/08/17 0511 03/08/17 0511 Results 24 hrs Laboratory Tests Test 03/08/17 05:11 White Blood Count 14.7 H Red Blood Count 4.20 L Hemoglobin 13.6 L Hematocrit 40.3 L Mean Corpuscular Volume 96.0 Mean Corpuscular Hemoglobin 32.4 Mean Corpuscular Hemoglobin Concent 33.7 Red Cell Distribution Width 12.9 Platelet Count 264 Mean Platelet Volume 10.3 Neutrophils % 72.0 Lymphocytes % 18.8 Monocytes % 5.6 Eosinophils % 0.3 Basophils % 0.3 Nucleated Red Blood Cells % 0.0 Neutrophils # 10.6 H Lymphocytes # 2.8 Monocytes # 0.8 Eosinophils # 0.0 Basophils # 0.1 Nucleated Red Blood Cells # 0.0 Prothrombin Time 11.9 L Prothrombin Time Ratio 0.9 INR International Normalized Ratio 0.88 Activated Partial Thromboplast Time 24.2 L Sodium Level 133 L Potassium Level 3.9 Chloride Level 100 Carbon Dioxide Level 25 Anion Gap 12 Blood Urea Nitrogen 19 Creatinine 0.73 Glucose Level 130 Calcium Level 9.3 Medications Medications Current Medications Ondansetron HCl (Zofran Inj) 4 mg Q6H PRN IV NAUSEA AND/OR VOMITING Last administered on 02/27/17 04:51; Admin Dose 4 MG; Start 02/26/17 at 18:00 Acetaminophen (Tylenol Tab) 650 mg Q6H PRN PO PAIN LEVEL 1-3 OR FEVER; Start at 18:00 Acetaminophen/ Hydrocodone Bitart ([place] (5/325)) 1 tab Q6H PRN PO MODERATE PAIN LEVEL 4-6 Last administered on 03/08/17 12:58; Admin Dose 1 TAB; Start at 18:00 Docusate Sodium (Colace) 100 mg Q12H PRN PO CONSTIPATION Last administered on 17:20; Admin Dose 100 MG; Start 02/26/17 at 18:00 Magnesium Hydroxide (Milk Of Mag) 30 ml DAILY PRN PO CONSTIPATION Last administered on 03/03/17 18:25; Admin Dose 30 ML; Start 02/26/17 at 18:00 Sodium Biphosphate/ Sodium Phosphate (Fleet Enema) 133 ml DAILY PRN [place] CONSTIPATION; Start 02/26/17 at 18:00 Pantoprazole (Protonix Tab) 40 mg DAILY@06 PO Last administered on 03/08/17 06: 05; Admin Dose 40 MG; Start 02/27/17 at 06:00 Heparin Sodium (Porcine) (Heparin (5000 Units/0.5 ml)) 5,000 unit Q12 SC Last administered on 03/07/17 22:20; Admin Dose 5,000 UNIT; Start 02/26/17 at 21:00 Nitroglycerin (Nitroglycerin (Sl Tab) 0.4 Mg) 1 tab Q5M PRN SL ANGINA; Start at 18:00 Citalopram Hydrobromide (Celexa) 40 mg DAILY PO Last administered on 03/08/17 09:31; Admin Dose 40 MG; Start 02/27/17 at 09:00 Estradiol (Estrace) 8 mg DAILY PO Last administered on 03/08/17 09:32; Admin Dose 8 MG; Start 02/27/17 at 10:00 Spironolactone (Aldactone) 300 mg DAILY PO Last administered on 03/08/17 09:30 ; Admin Dose 300 MG; Start 02/27/17 at 09:00 Chlordiazepoxide (Librium) 10 mg QID PO Last administered on 03/08/17 12:58; Admin Dose 10 MG; Start 02/26/17 at 18:30 IV Flush (NS 10 ml) 10 ml PRN PRN IV IV PROTOCOL; Start 02/26/17 at 21:00 Tramadol HCl (Ultram) 50 mg Q6H PRN PO PAIN Last administered on 02/28/17 20: 44; Admin Dose 50 MG; Start 02/27/17 at 20:00 Trazodone HCl (Desyrel) 100 mg HS PO Last administered on 03/08/17 01:34; Admin Dose 100 MG; Start 02/28/17 at 21:00 Gabapentin (Neurontin) 300 mg TID PO Last administered on 03/08/17 12:57; Admin Dose 300 MG; Start 02/28/17 at 09:00 Clindamycin HCl (Cleocin) 450 mg Q8 PO Last administered on 03/08/17 06:05; Admin Dose 450 MG; Start 03/03/17 at 00:00; Stop 03/08/17 at 14:01 Prednisone (Prednisone) 40 mg DAILY PO Last administered on 03/08/17 09:36; Admin Dose 40 MG; Start 03/03/17 at 09:00 Lorazepam (Ativan) 1 mg Q6H PRN PO agitation, anxiety, withdrawal Last administered on 03/08/17 12:58; Admin Dose 1 MG; Start 03/02/17 at 19:00 Morphine Sulfate (Ms Contin (Er)) 15 mg BID PO Last administered on 03/08/17t 09 :35; Admin Dose 15 MG; Start 03/02/17 at 21:00 Miscellaneous Information (* Miscellaneous Pharmacy Order) [facility] IN AM ONCE XX ; Start 03/07/17 at 22:00; Status CLAUDIA TILLMAN MD March 08, 2017 13:10
[2017-03-08] MEDS: DOCUSATE SODIUM 100 MG CAP PO PRN (15:44)
[2017-03-08 19:25] VITALS: BP 129/65; RESP 20
[2017-03-09] MEDS: traZODone 100 MG TAB PO SCH (01:31)
[2017-03-09 05:36] LABS: ADD SCAN DIFF NO
[2017-03-09 06:02] LABS: POTASSIUM 3.9 mmol/L (3.5-5.1)
[2017-03-09 06:04] LABS: CREATININE 0.73 mg/dl (0.61-1.24)
[2017-03-09] MEDS: PANTOPRAZOLE (EC) 40 MG TAB PO SCH (06:04)
[2017-03-09] MEDS: LORAZEPAM 1 MG TAB PO PRN ×3 (06:04→18:42)
[2017-03-09] MEDS: HYDROCODONE/APAP (5/325) TAB PO PRN ×3 (06:04→18:54)
[2017-03-09] MEDS: HEPARIN 5,000 UNIT/0.5 ML VIAL SC SCH ×2 (09:00→20:58)
[2017-03-09 09:11] LABS: BASOPHILS % 0.1 % (0.0-2.0); EOSINOPHILS # 0.1 10^3/ul (0.0-0.5); EOSINOPHILS % 0.4 % (0.0-7.0); HEMATOCRIT 40.1 % (42.0-52.0); HEMOGLOBIN 13.3 g/dl (14.0-18.0); LYMPHOCYTES # 3.2 10^3/ul (0.8-2.9); LYMPHOCYTES % 22.9 % (15.0-51.0); MEAN CORPUSCULAR HEMOGLOBIN 31.9 pg (29.0-33.0); MEAN CORPUSCULAR HGB CONC 33.2 g/dl (32.0-37.0); MEAN CORPUSCULAR VOLUME 96.2 fl (82.0-101.0); MEAN PLATELET VOLUME 10.9 fl (7.4-10.4); MONOCYTE # 0.9 10^3/ul (0.3-0.9); MONOCYTES % 6.3 % (0.0-11.0); NEUTROPHIL # 9.4 10^3/ul (1.6-7.5); NEUTROPHILS % 66.4 % (39.0-77.0); PLATELET COUNT 222 10^3/UL (140-415); RED BLOOD COUNT 4.17 10^6/ul (4.70-6.10); RED CELL DISTRIBUTION WIDTH 13.2 % (11.5-14.5); WHITE BLOOD COUNT 14.1 10^3/ul (4.8-10.8)
[2017-03-09] MEDS: ESTRADIOL 1 MG TAB PO SCH (09:35)
[2017-03-09] MEDS: SPIRONOLACTONE 50 MG TAB PO SCH (09:36)
[2017-03-09] MEDS: CHLORDIAZEPOXIDE 5 MG CAP PO SCH ×3 (09:36→20:49)
[2017-03-09] MEDS: GABAPENTIN 300 MG CAP PO SCH ×3 (09:36→20:49)
[2017-03-09] MEDS: CITALOPRAM 20 MG TAB PO SCH (09:37)
[2017-03-09] MEDS: predniSONE 20 MG TAB PO SCH (09:37)
[2017-03-09] MEDS: morphine (ER) 15 MG TAB PO SCH ×2 (09:37→20:49)
--- NOTE | 2017-03-09 12:19 | PN ---
Date/Time of Note Date/Time of Note DATE: 03/09/17 TIME: 12:05 Assessment/Plan VTE Prophylaxis VTE Prophylaxis Intervention: SCD's Lines/Catheters IV Catheter Type (from Nrs): PICC Line Central line still needed: No Urinary Cath still in place: No Assessment/Plan Chief Complaint/Hosp Course Assessment/Plan Assessment/Plan 1. right neck swelling- s/p ENT consutl, continue PO clindamycin 2. Alcohol intoxication. resolved, Ativan as needed and Librium . 3. Psychiatric: Suicide ideation -appreciate psychiatric consult - Ativan PO p.r.n. for agitation. - Celexa, add Trazadone and Gabapentin -Waiting for psych placement 4. Gastrointestinal prophylaxis, proton pump inhibitor. 5. Deep venous thrombosis prophylaxis, heparin subQ 6. Hep C - + - monitor 7. asthma - on Po Prednisone breathing treatment 8. Pediculosis Capitis , Re apply permethrin shampoo , continue frequent combing pt is medically cleared to go to Psych floor/facility Problems: Subjective 24 Hr Interval Summary Free Text/Dictation Patient has been noncompliant with brushing her hair to get rid of lice She denies of any chest pain or shortness of breath Complains of having headache in a.m. which has resolved spontaneously Exam/Review of Systems Vital Signs Vitals Vital Signs Date Time Temp Pulse Resp B/P Pulse Ox O2 Delivery O2 Flow Rate FiO2 03/08/17 19:25 98.4 66 20 129/65 97 03/07/17 19:58 Room Air Intake and Output 03/08/17 03/08/17 03/09/17 14:59 22:59 06:59 Intake Total 1230 ml 600 ml Balance 1230 ml 600 ml Exam General: The patient is moderately overweight, Not in acute distress. HEENT: Atraumatic, normocephalic. The pupils are equal and round . Neck: Supple with full range of motion. Chest: Normal expansion of the thorax during inspiration Lungs: Clear to auscultation bilaterally Heart: Normal S1-S2, Regular rhythm and rate. Abdomen: Soft , nontender, nondistended , bowel sounds are present. Extremities: Normal to inspection, no edema no cyanosis Neurologic: Normal mental status,The patient is awake, alert and oriented . Results Result Diagram: 03/09/17 0501 03/09/17 0501 Results 24 hrs Laboratory Tests Test 03/09/17 05:01 White Blood Count 14.1 H Red Blood Count 4.17 L Hemoglobin 13.3 L Hematocrit 40.1 L Mean Corpuscular Volume 96.2 Mean Corpuscular Hemoglobin 31.9 Mean Corpuscular Hemoglobin Concent 33.2 Red Cell Distribution Width 13.2 Platelet Count 222 Mean Platelet Volume 10.9 H Neutrophils % 66.4 Lymphocytes % 22.9 Monocytes % 6.3 Eosinophils % 0.4 Basophils % 0.1 Nucleated Red Blood Cells % 0.0 Neutrophils # 9.4 H Lymphocytes # 3.2 H Monocytes # 0.9 Eosinophils # 0.1 Basophils # 0.0 Nucleated Red Blood Cells # 0.0 Sodium Level 135 Potassium Level 3.9 Chloride Level 100 Carbon Dioxide Level 24 Anion Gap 15 Blood Urea Nitrogen 20 Creatinine 0.73 Glucose Level 108 Calcium Level 9.0 Medications Medications Current Medications Ondansetron HCl (Zofran Inj) 4 mg Q6H PRN IV NAUSEA AND/OR VOMITING Last administered on 02/27/17 04:51; Admin Dose 4 MG; Start 02/26/17 at 18:00 Acetaminophen (Tylenol Tab) 650 mg Q6H PRN PO PAIN LEVEL 1-3 OR FEVER; Start at 18:00 Acetaminophen/ Hydrocodone Bitart ([place] (5/325)) 1 tab Q6H PRN PO MODERATE PAIN LEVEL 4-6 Last administered on 03/09/17 12:03; Admin Dose 1 TAB; Start at 18:00 Docusate Sodium (Colace) 100 mg Q12H PRN PO CONSTIPATION Last administered on 15:44; Admin Dose 100 MG; Start 02/26/17 at 18:00 Magnesium Hydroxide (Milk Of Mag) 30 ml DAILY PRN PO CONSTIPATION Last administered on 03/03/17 18:25; Admin Dose 30 ML; Start 02/26/17 at 18:00 Sodium Biphosphate/ Sodium Phosphate (Fleet Enema) 133 ml DAILY PRN [place] CONSTIPATION; Start 02/26/17 at 18:00 Pantoprazole (Protonix Tab) 40 mg DAILY@06 PO Last administered on 03/09/17 06: 04; Admin Dose 40 MG; Start 02/27/17 at 06:00 Heparin Sodium (Porcine) (Heparin (5000 Units/0.5 ml)) 5,000 unit Q12 SC Last administered on 03/08/17 16:08; Admin Dose 5,000 UNIT; Start 02/26/17 at 21:00 Nitroglycerin (Nitroglycerin (Sl Tab) 0.4 Mg) 1 tab Q5M PRN SL ANGINA; Start at 18:00 Citalopram Hydrobromide (Celexa) 40 mg DAILY PO Last administered on 03/09/17 09:37; Admin Dose 40 MG; Start 02/27/17 at 09:00 Estradiol (Estrace) 8 mg DAILY PO Last administered on 03/09/17 09:35; Admin Dose 8 MG; Start 02/27/17 at 10:00 Spironolactone (Aldactone) 300 mg DAILY PO Last administered on 03/09/17 09:36 ; Admin Dose 300 MG; Start 02/27/17 at 09:00 Chlordiazepoxide (Librium) 10 mg QID PO Last administered on 03/09/17 09:36; Admin Dose 10 MG; Start 02/26/17 at 18:30 IV Flush (NS 10 ml) 10 ml PRN PRN IV IV PROTOCOL; Start 02/26/17 at 21:00 Tramadol HCl (Ultram) 50 mg Q6H PRN PO PAIN Last administered on 02/28/17 20: 44; Admin Dose 50 MG; Start 02/27/17 at 20:00 Trazodone HCl (Desyrel) 100 mg HS PO Last administered on 03/09/17 01:31; Admin Dose 100 MG; Start 02/28/17 at 21:00 Gabapentin (Neurontin) 300 mg TID PO Last administered on 03/09/17 09:36; Admin Dose 300 MG; Start 02/28/17 at 09:00 Prednisone (Prednisone) 40 mg DAILY PO Last administered on 03/09/17 09:37; Admin Dose 40 MG; Start 03/03/17 at 09:00 Lorazepam (Ativan) 1 mg Q6H PRN PO agitation, anxiety, withdrawal Last administered on 03/09/17 12:03; Admin Dose 1 MG; Start 03/02/17 at 19:00 Morphine Sulfate (Ms Contin (Er)) 15 mg BID PO Last administered on 03/09/17 09 :37; Admin Dose 15 MG; Start 03/02/17 at 21:00 CLAUDIA ROSALES MD March 09, 2017 12:17
[2017-03-09] MEDS: CEFTRIAXONE 1 GM/50 ML (PMX) 50 ML IVPB SCH (13:49)
[2017-03-09 19:25] VITALS: BP 145/82; RESP 20
[2017-03-09] MEDS: DOCUSATE SODIUM 100 MG CAP PO PRN (20:12)
[2017-03-10] MEDS: traZODone 100 MG TAB PO SCH (01:26)
[2017-03-10] MEDS: LORAZEPAM 1 MG TAB PO PRN ×3 (06:09→18:45)
[2017-03-10] MEDS: PANTOPRAZOLE (EC) 40 MG TAB PO SCH (06:09)
--- NOTE | 2017-03-10 10:09 | PDOCDIS ---
Discharge Instructions CONDITION Patient Condition: Good HOME CARE INSTRUCTIONS: Special Diet: 1800 ADA diet, 2 gm NA diet ACTIVITY: Activity Restrictions: No Restrictions FOLLOW UP/APPOINTMENTS Appointments Follow up with Psych CLAUDIA ROSALES MD March 10, 2017 10:09
[2017-03-10] MEDS ORDERED: DOCU-216 PO (10:10)
--- NOTE | 2017-03-10 10:13 | PN ---
Date/Time of Note Date/Time of Note DATE: 03/10/17 TIME: 10:11 Assessment/Plan VTE Prophylaxis VTE Prophylaxis Intervention: SCD's Lines/Catheters IV Catheter Type (from Nrsg): PICC Line Central line still needed: No Urinary Cath still in place: No Assessment/Plan Chief Complaint/Hosp Course Assessment/Plan Assessment/Plan 1. right neck swelling- s/p ENT consutl, continue PO clindamycin 2. Alcohol intoxication. resolved, Ativan as needed and Librium . 3. Psychiatric: Suicide ideation -appreciate psychiatric consult - Ativan PO p.r.n. for agitation. - Celexa, add Trazadone and Gabapentin -Waiting for psych placement 4. Gastrointestinal prophylaxis, proton pump inhibitor. 5. Deep venous thrombosis prophylaxis, heparin subQ 6. Hep C - + - monitor 7. asthma - on Po Prednisone breathing treatment 8. Pediculosis Capitis , resolved pt is medically cleared to go to Psych floor/facility Problems: Subjective 24 Hr Interval Summary Free Text/Dictation Patient denies of any chest pain or shortness of breath Status post haircut and treatment lice has resolved She denies of any discomfort Exam/Review of Systems Vital Signs Vitals Vital Signs Date Time Temp Pulse Resp B/P Pulse Ox O2 Delivery O2 Flow Rate FiO2 03/09/17 19:25 98.4 70 20 145/82 96 03/07/17 19:58 Room Air Intake and Output 03/09/17 03/09/17 03/10/17 15:00 23:00 07:00 Intake Total 50 ml 800 ml Balance 50 ml 800 ml Exam General: The patient is moderately overweight, Not in acute distress. HEENT: Atraumatic, normocephalic. The pupils are equal and round . Neck: Supple with full range of motion. Chest: Normal expansion of the thorax during inspiration Lungs: Clear to auscultation bilaterally Heart: Normal S1-S2, Regular rhythm and rate. Abdomen: Soft , nontender, nondistended , bowel sounds are present. Extremities: Normal to inspection, no edema no cyanosis Neurologic: Normal mental status,The patient is awake, alert and oriented . Head: Clean with no evidence of lice Results Result Diagram: 03/09/17 0501 03/09/17 0501 Medications Medications Current Medications Ondansetron HCl (Zofran Inj) 4 mg Q6H PRN IV NAUSEA AND/OR VOMITING Last administered on 02/27/17 04:51; Admin Dose 4 MG; Start 02/26/17 at 18:00 Acetaminophen (Tylenol Tab) 650 mg Q6H PRN PO PAIN LEVEL 1-3 OR FEVER; Start at 18:00 Acetaminophen/ Hydrocodone Bitart ([place] (5/325)) 1 tab Q6H PRN PO MODERATE PAIN LEVEL 4-6 Last administered on 03/09/17 18:54; Admin Dose 1 TAB; Start at 18:00 Docusate Sodium (Colace) 100 mg Q12H PRN PO CONSTIPATION Last administered on 20:12; Admin Dose 100 MG; Start 02/26/17 at 18:00 Magnesium Hydroxide (Milk Of Mag) 30 ml DAILY PRN PO CONSTIPATION Last administered on 03/03/17 18:25; Admin Dose 30 ML; Start 02/26/17 at 18:00 Sodium Biphosphate/ Sodium Phosphate (Fleet Enema) 133 ml DAILY PRN [place] CONSTIPATION; Start 02/26/17 at 18:00 Pantoprazole (Protonix Tab) 40 mg DAILY@06 PO Last administered on 03/10/17 06 :09; Admin Dose 40 MG; Start 02/27/17 at 06:00 Heparin Sodium (Porcine) (Heparin (5000 Units/0.5 ml)) 5,000 unit Q12 SC Last administered on 03/09/17 20:58; Admin Dose 5,000 UNIT; Start 02/26/17 at 21:00 Nitroglycerin (Nitroglycerin (Sl Tab) 0.4 Mg) 1 tab Q5M PRN SL ANGINA; Start at 18:00 Citalopram Hydrobromide (Celexa) 40 mg DAILY PO Last administered on 03/09/17 09:37; Admin Dose 40 MG; Start 02/27/17 at 09:00 Estradiol (Estrace) 8 mg DAILY PO Last administered on 03/09/17 09:35; Admin Dose 8 MG; Start 02/27/17 at 10:00 Spironolactone (Aldactone) 300 mg DAILY PO Last administered on 03/09/17 09:36 ; Admin Dose 300 MG; Start 02/27/17 at 09:00 IV Flush (NS 10 ml) 10 ml PRN PRN IV IV PROTOCOL; Start 02/26/17 at 21:00 Tramadol HCl (Ultram) 50 mg Q6H PRN PO PAIN Last administered on 02/28/17 20: 44; Admin Dose 50 MG; Start 02/27/17 at 20:00 Trazodone HCl (Desyrel) 100 mg HS PO Last administered on 03/10/17 01:26; Admin Dose 100 MG; Start 02/28/17 at 21:00 Gabapentin (Neurontin) 300 mg TID PO Last administered on 03/09/17 20:49; Admin Dose 300 MG; Start 02/28/17 at 09:00 Lorazepam (Ativan) 1 mg Q6H PRN PO agitation, anxiety, withdrawal Last administered on 03/10/17 06:09; Admin Dose 1 MG; Start 03/02/17 at 19:00 Morphine Sulfate (Ms Contin (Er)) 15 mg BID PO Last administered on 03/09/17 20 :49; Admin Dose 15 MG; Start 03/02/17 at 21:00 Chlordiazepoxide (Librium) 25 mg TID PO Last administered on 03/09/17 20:49; Admin Dose 25 MG; Start 03/09/17 at 13:00 Prednisone 20 mg 20 mg DAILY PO ; Start 03/10/17 at 09:00 Ceftriaxone Sodium (Rocephin) 50 ml @ 100 mls/hr Q24H IVPB Last administered on 03/09/17 13:49; Admin Dose 100 MLS/HR; Start 03/09/17 at 12:30 CLAUDIA ROSALES MD March 10, 2017 10:13
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
[2017-03-10 12:00] VITALS: BP 119/66; RESP 20
[2017-03-10] MEDS: CEFTRIAXONE 1 GM/50 ML (PMX) 50 ML IVPB SCH (12:55)
[2017-03-10] MEDS: ESTRADIOL 1 MG TAB PO SCH (12:56)
[2017-03-10] MEDS: morphine (ER) 15 MG TAB PO SCH ×2 (12:56→20:22)
[2017-03-10] MEDS: GABAPENTIN 300 MG CAP PO SCH ×3 (12:57→20:22)
[2017-03-10] MEDS: predniSONE 20 MG TAB PO SCH (12:57)
[2017-03-10] MEDS: CITALOPRAM 20 MG TAB PO SCH (12:57)
[2017-03-10] MEDS: CHLORDIAZEPOXIDE 5 MG CAP PO SCH ×4 (12:58→20:22)
[2017-03-10] MEDS: SPIRONOLACTONE 50 MG TAB PO SCH (13:02)
[2017-03-10] MEDS: HEPARIN 5,000 UNIT/0.5 ML VIAL SC SCH ×2 (13:02→15:58)
[2017-03-10] MEDS: HYDROCODONE/APAP (5/325) TAB PO PRN ×2 (14:58→21:19)
[2017-03-10] MEDS: DOCUSATE SODIUM 100 MG CAP PO PRN (15:51)
[2017-03-10 19:27] VITALS: BP 118/67; RESP 20
[2017-03-11] MEDS: traZODone 100 MG TAB PO SCH (02:28)
[2017-03-11] MEDS: PANTOPRAZOLE (EC) 40 MG TAB PO SCH (09:13)
[2017-03-11] MEDS: ESTRADIOL 1 MG TAB PO SCH (09:13)
[2017-03-11] MEDS: CITALOPRAM 20 MG TAB PO SCH (09:13)
[2017-03-11] MEDS: GABAPENTIN 300 MG CAP PO SCH ×3 (09:14→21:11)
[2017-03-11] MEDS: LORAZEPAM 1 MG TAB PO PRN ×3 (09:14→21:11)
[2017-03-11] MEDS: morphine (ER) 15 MG TAB PO SCH (09:14)
[2017-03-11] MEDS: predniSONE 20 MG TAB PO SCH (09:14)
[2017-03-11] MEDS: CHLORDIAZEPOXIDE 5 MG CAP PO SCH (09:14)
[2017-03-11] MEDS: SPIRONOLACTONE 50 MG TAB PO SCH (09:15)
--- NOTE | 2017-03-11 11:44 | PN ---
Date/Time of Note Date/Time of Note DATE: 03/11/17 TIME: 11:42 Assessment/Plan VTE Prophylaxis VTE Prophylaxis Intervention: SCD's Lines/Catheters IV Catheter Type (from Nrsg): PICC Line Central line still needed: Yes Urinary Cath still in place: No Assessment/Plan Chief Complaint/Hosp Course Assessment/Plan Assessment/Plan 1. right neck swelling- s/p ENT consutl, continue PO clindamycin 2. Alcohol intoxication. resolved, Ativan as needed, discontinue Librium 3. Psychiatric: Suicide ideation -appreciate psychiatric consult - Ativan PO p.r.n. for agitation. - Celexa, add Trazadone and Gabapentin -Waiting for psych placement 4. Gastrointestinal prophylaxis, proton pump inhibitor. 5. Deep venous thrombosis prophylaxis, heparin subQ 6. Hep C - + - monitor 7. asthma - on Po Prednisone breathing treatment 8. Pediculosis Capitis , resolved pt is medically cleared to go to Psych floor/facility Problems: Subjective 24 Hr Interval Summary Free Text/Dictation Patient continues to have suicidal ideation and wanted to hurt herself by cutting her wrist Denies of any chest pain or shortness of breath Denies of any body ache Exam/Review of Systems Vital Signs Vitals Vital Signs Date Time Temp Pulse Resp B/P Pulse Ox O2 Delivery O2 Flow Rate FiO2 03/10/17 19:27 98.5 77 20 118/67 98 03/07/17 19:58 Room Air Intake and Output 03/10/17 03/10/17 03/11/17 15:00 23:00 07:00 Intake Total 50 ml 1000 ml Balance 50 ml 1000 ml Exam General: The patient is well-developed, Not in acute distress. HEENT: Atraumatic, normocephalic. The pupils are equal and round . Neck: Supple with full range of motion. Chest: Normal expansion of the thorax during inspiration Lungs: Clear to auscultation bilaterally Heart: Normal S1-S2, Regular rhythm and rate. Abdomen: Soft , nontender, nondistended , bowel sounds are present. Extremities: Normal to inspection, no edema no cyanosis Neurologic: Normal mental status,The patient is awake, alert and oriented . Results Result Diagram: 03/09/17 0501 03/09/17 0501 Medications Medications Current Medications Ondansetron HCl (Zofran Inj) 4 mg Q6H PRN IV NAUSEA AND/OR VOMITING Last administered on 02/27/17 04:51; Admin Dose 4 MG; Start 02/26/17 at 18:00 Acetaminophen (Tylenol Tab) 650 mg Q6H PRN PO PAIN LEVEL 1-3 OR FEVER; Start at 18:00 Docusate Sodium (Colace) 100 mg Q12H PRN PO CONSTIPATION Last administered on 15:51; Admin Dose 100 MG; Start 02/26/17 at 18:00 Magnesium Hydroxide (Milk Of Mag) 30 ml DAILY PRN PO CONSTIPATION Last administered on 03/03/17 18:25; Admin Dose 30 ML; Start 02/26/17 at 18:00 Sodium Biphosphate/ Sodium Phosphate (Fleet Enema) 133 ml DAILY PRN [place] CONSTIPATION; Start 02/26/17 at 18:00 Pantoprazole (Protonix Tab) 40 mg DAILY@06 PO Last administered on 03/11/17 09 :13; Admin Dose 40 MG; Start 02/27/17 at 06:00 Heparin Sodium (Porcine) (Heparin (5000 Units/0.5 ml)) 5,000 unit Q12 SC Last administered on 03/10/17 15:58; Admin Dose 5,000 UNIT; Start 02/26/17 at 21:00 Nitroglycerin (Nitroglycerin (Sl Tab) 0.4 Mg) 1 tab Q5M PRN SL ANGINA; Start at 18:00 Citalopram Hydrobromide (Celexa) 40 mg DAILY PO Last administered on 03/11/17 09:13; Admin Dose 40 MG; Start 02/27/17 at 09:00 Estradiol (Estrace) 8 mg DAILY PO Last administered on 03/11/17 09:13; Admin Dose 8 MG; Start 02/27/17 at 10:00 Spironolactone (Aldactone) 300 mg DAILY PO Last administered on 03/11/17 09:15 ; Admin Dose 300 MG; Start 02/27/17 at 09:00 IV Flush (NS 10 ml) 10 ml PRN PRN IV IV PROTOCOL; Start 02/26/17 at 21:00 Tramadol HCl (Ultram) 50 mg Q6H PRN PO PAIN Last administered on 02/28/17 20: 44; Admin Dose 50 MG; Start 02/27/17 at 20:00 Gabapentin (Neurontin) 300 mg TID PO Last administered on 03/11/17t 09:14; Admin Dose 300 MG; Start 02/28/17 at 09:00 Prednisone (Prednisone) 10 mg DAILY PO ; Start 03/12/17 at 09:00 Trazodone HCl (Desyrel) 50 mg HS PO ; Start 03/11/17 at 21:00 CLAUDIA ROSALES MD March 11, 2017 11:44
--- NOTE | 2017-03-11 13:19 | PSY ---
Date/Time of Note Date/Time of Note DATE: 03/11/17 TIME: 13:12 Psychiatric Subjective Eval Consent Pt consented to telemedicine: Yes Subjective Evaluation Patient location: inpatient Chief Complaint: SUICIDAL IDEATION, HAS PLAN, CUTTING HIS THROAT Reason for consult: re-eval History of present illness Pt is A 31-year-old transsexual, transvestite homeless person who has a past medical history of bipolar disorder, PTSD, possible seizures in the past, asthma , hepatitis C, posttraumatic stress disorder who was evaluated 02/27/17. Pt still maintains, he is suicidal but voices various plans. To me he said he will cut his wrists. He plans to start CD program, but it will be open only in 30 days. In spite of voicing active Si he is open to going to a residential program should one become available. Denies AH or Vh, denies HI. Past psychiatric history prior inpt Hospitalization: Suicidal Attempt(s) Family History denies Medical history Problems Medical Problems: (1) Alcohol abuse Status: Acute (2) Kimbrough's palsy Status: Acute (3) Neck soft tissue injury Status: Acute (4) Parotiditis Status: Acute (5) Patient left without being seen Status: Acute (6) Substance abuse Status: Acute (7) Suicidal ideation Status: Acute Allergies: Coded Allergies: NSAIDS (Non-Steroidal Anti-Inflamma (Verified Allergy, Unknown, swelling, 02/26/17) haloperidol (Verified Allergy, Unknown, swelling, 02/26/17) Substance Abuse Substance abuse history: Yes Prior substance abuse treatmen: Yes Social History Marital status: single Level of education: HS DPA/Conservatorship: No Occupation/[employer] on SSI, homeless Psychiatric Objective Eval Mental Status Examination: Appearance: Disheveled Eye Contact: Fair Psychomotor Activity: Normal Behavior: Cooperative Speech: Clear AFFECT: Guarded Mood: Irritable Though Process: Linear Thought Content: Normal Suicidal: Yes Homicidal: No On 72 hour hold: No Orientation: x4 Cognition: Alert Insight: Impared Judgement: Impared Assessment and Plan Assessment/Diagnosis [place] I: BIPOLAR DISORDER NOS [place] II: BORDERLINE PD [place] III: PER RECORD [place] IV: SEVERE [place] V: GAF 35 Recommendation/Plan Medication Management PLEASE CONSIDER INCREASING TRAZODONE TO 300 MG PO HS; GABAPENTIN 600 MG PO TID Psychotherapy DEFER TO INPT Follow-up/Disposition PT STILL REPROTS ACTIVE SI WITH A PLAN. PLEASE TRANSFER TO INPT PSYCH IF MEDICALLY CLEARED. [id number] Recommendation: ERIC KIRK MD March 11, 2017 13:19
[2017-03-11] MEDS: CLINDAMYCIN 300 MG CAP PO SCH ×2 (13:46→21:11)
[2017-03-11] MEDS: HEPARIN 5,000 UNIT/0.5 ML VIAL SC SCH ×2 (15:10→21:16)
[2017-03-11 20:08] VITALS: BP 124/63; RESP 18
[2017-03-11] MEDS ORDERED: traZODone 50 MG TAB PO SCH (21:00)
[2017-03-11] MEDS: DOCUSATE SODIUM 100 MG CAP PO PRN (21:18)
[2017-03-12] MEDS: LORAZEPAM 1 MG TAB PO PRN ×3 (02:59→16:35)
[2017-03-12] MEDS: PANTOPRAZOLE (EC) 40 MG TAB PO SCH (06:01)
[2017-03-12] MEDS: CLINDAMYCIN 300 MG CAP PO SCH ×2 (06:01→14:09)
[2017-03-12] MEDS ORDERED: predniSONE 10 MG TAB PO SCH (09:00)
[2017-03-12] MEDS: HEPARIN 5,000 UNIT/0.5 ML VIAL SC SCH (09:00)
[2017-03-12] MEDS: CITALOPRAM 20 MG TAB PO SCH (09:18)
[2017-03-12] MEDS: SPIRONOLACTONE 50 MG TAB PO SCH (09:18)
[2017-03-12] MEDS: GABAPENTIN 300 MG CAP PO SCH ×3 (09:18→14:10)
[2017-03-12] MEDS: ESTRADIOL 1 MG TAB PO SCH (09:19)
[2017-03-12 09:32] VITALS: BP 104/61; PULSE 62; RESP 18
--- NOTE | 2017-03-12 12:05 | PN ---
Date/Time of Note Date/Time of Note DATE: 03/12/17 TIME: 11:53 Assessment/Plan VTE Prophylaxis VTE Prophylaxis Intervention: SCD's Lines/Catheters IV Catheter Type (from Nrs): PICC Line Central line still needed: Yes Urinary Cath still in place: No Assessment/Plan Chief Complaint/Hosp Course Assessment/Plan Assessment/Plan 1. right neck swelling- s/p ENT consutl, continue PO clindamycin 2. Alcohol intoxication. resolved, Ativan as needed, discontinue Librium 3. Psychiatric: Suicide ideation -appreciate psychiatric consult - Ativan PO p.r.n. for agitation. - Celexa, add Trazadone and Gabapentin -Waiting for psych placement 4. Gastrointestinal prophylaxis, proton pump inhibitor. 5. Deep venous thrombosis prophylaxis, heparin subQ 6. Hep C - + - monitor 7. asthma - on Po Prednisone breathing treatment 8. Pediculosis Capitis , resolved pt is medically cleared to go to Psych floor/facility Problems: Subjective 24 Hr Interval Summary Free Text/Dictation Patient continues to complain of having difficulty sleeping She continues to have suicidal ideation Exam/Review of Systems Vital Signs Vitals Vital Signs Date Time Temp Pulse Resp B/P Pulse Ox O2 Delivery O2 Flow Rate FiO2 03/12/17 09:32 98.0 62 18 104/61 100 Room Air Intake and Output 03/11/17 03/11/17 03/12/17 15:00 23:00 07:00 Intake Total 1100 ml 1200 ml 800 ml Balance 1100 ml 1200 ml 800 ml Exam General: The patient is well-developed, Not in acute distress. HEENT: Atraumatic, normocephalic. The pupils are equal and round . Neck: Supple with full range of motion. Chest: Normal expansion of the thorax during inspiration Lungs: Clear to auscultation bilaterally Heart: Normal S1-S2, Regular rhythm and rate. Abdomen: Soft , nontender, nondistended , bowel sounds are present. Extremities: Normal to inspection, no edema no cyanosis Neurologic: Normal mental status,The patient is awake, alert and oriented . Results Result Diagram: 03/09/17 0501 03/09/17 0501 Medications Medications Current Medications Ondansetron HCl (Zofran Inj) 4 mg Q6H PRN IV NAUSEA AND/OR VOMITING Last administered on 02/27/17t 04:51; Admin Dose 4 MG; Start 02/26/17 at 18:00 Acetaminophen (Tylenol Tab) 650 mg Q6H PRN PO PAIN LEVEL 1-3 OR FEVER; Start at 18:00 Docusate Sodium (Colace) 100 mg Q12H PRN PO CONSTIPATION Last administered on 21:18; Admin Dose 100 MG; Start 02/26/17 at 18:00 Magnesium Hydroxide (Milk Of Mag) 30 ml DAILY PRN PO CONSTIPATION Last administered on 03/03/17 18:25; Admin Dose 30 ML; Start 02/26/17 at 18:00 Sodium Biphosphate/ Sodium Phosphate (Fleet Enema) 133 ml DAILY PRN MS CONSTIPATION; Start 02/26/17 at 18:00 Pantoprazole (Protonix Tab) 40 mg DAILY@06 PO Last administered on 03/12/17 06 :01; Admin Dose 40 MG; Start 02/27/17 at 06:00 Heparin Sodium (Porcine) (Heparin (5000 Units/0.5 ml)) 5,000 unit Q12 SC Last administered on 03/11/17 21:16; Admin Dose 5,000 UNIT; Start 02/26/17 at 21:00 Nitroglycerin (Nitroglycerin (Sl Tab) 0.4 Mg) 1 tab Q5M PRN SL ANGINA; Start at 18:00 Citalopram Hydrobromide (Celexa) 40 mg DAILY PO Last administered on 03/12/17 09:18; Admin Dose 40 MG; Start 02/27/17 at 09:00 Estradiol (Estrace) 8 mg DAILY PO Last administered on 03/12/17 09:19; Admin Dose 8 MG; Start 02/27/17 at 10:00 Spironolactone (Aldactone) 300 mg DAILY PO Last administered on 03/12/17 09:18 ; Admin Dose 300 MG; Start 02/27/17 at 09:00 IV Flush (NS 10 ml) 10 ml PRN PRN IV IV PROTOCOL; Start 02/26/17 at 21:00 Tramadol HCl (Ultram) 50 mg Q6H PRN PO PAIN Last administered on 02/28/17 20: 44; Admin Dose 50 MG; Start 02/27/17 at 20:00 Gabapentin (Neurontin) 300 mg TID PO Last administered on 03/12/17 09:18; Admin Dose 300 MG; Start 02/28/17 at 09:00 Prednisone (Prednisone) 10 mg DAILY PO Last administered on 03/12/17 09:18; Admin Dose 10 MG; Start 03/12/17 at 09:00 Clindamycin HCl (Cleocin) 300 mg Q8 PO Last administered on 03/12/17 06:01; Admin Dose 300 MG; Start 03/11/17 at 13:00 Lorazepam (Ativan) 1 mg Q6H PRN PO ANXIETY Last administered on 03/12/17 09:18 ; Admin Dose 1 MG; Start 03/11/17 at 15:00 Trazodone HCl (Desyrel) 100 mg HS PO ; Start 03/12/17 at 21:00 Clonazepam (Klonopin) 1 mg BID PO ; Start 03/12/17 at 21:00 CLAUDIA ROSALES MD March 12, 2017 12:05
[2017-03-12] MEDS ORDERED: clonAZEPAM 0.5 MG TAB PO SCH (21:00)
[2017-03-12] MEDS ORDERED: traZODone 50 MG TAB PO SCH (21:00)
== END 2017-03-12 19:40 | DRG 603 ==
LOC: E/R 10:42 → MS2 14:54
PROVIDERS: ADMIT Family Medicine; ATTEND Family Medicine
PROC: 02H633Z Insertion of Infusion Device into Right Atrium, Percutaneous Approach (ICD-10-PCS; principal; 2017-02-26)
PROC: B244ZZZ Ultrasonography of Right Heart (ICD-10-PCS; 2017-02-26)
DX: L03.221 Cellulitis of neck (principal); R45.851 Suicidal ideations; F31.81 Bipolar II disorder; B85.0 Pediculosis due to Pediculus humanus capitis; F14.10 Cocaine abuse, uncomplicated; F11.10 Opioid abuse, uncomplicated; S19.9XXA Unspecified injury of neck, initial encounter; F17.210 Nicotine dependence, cigarettes, uncomplicated; F64.1 Dual role transvestism; G51.0 Bell's palsy; Z59.0 Homelessness; J45.909 Unspecified asthma, uncomplicated; B18.2 Chronic viral hepatitis C; F43.10 Post-traumatic stress disorder, unspecified; K11.21 Acute sialoadenitis; Y90.8 Blood alcohol level of 240 mg/100 ml or more; F60.3 Borderline personality disorder; F10.229 Alcohol dependence with intoxication, unspecified; G40.909 Epilepsy, unspecified, not intractable, without status epilepticus; R13.10 Dysphagia, unspecified; X99.8XXA Assault by other sharp object, initial encounter; Y92.009 Unspecified place in unspecified non-institutional (private) residence as the place of occurrence of the external cause
CPT/HCPCS: 36415; 36569; 70498; 71010; 72125; 76937; 80048; 80053; 80061; 80306; 80307; 82150; 83036; 83735; 84100; 84439; 84443; 85025; 85610; 85730; 86704; 86709; 86803; 87340; 96374; 96375; 96376; J0696; J1170; J1644; J2060; J2270; J2405; J2920; J3411; J3475; J7030; J7040; J7512; Q9967